=== PATIENT | female | born 1955 | race Caucasian/White ===

== ENCOUNTER → 2017-02-17 | Outpatient (CLI) | payer MEDICARE ==
--- NOTE | 2017-02-18 13:04 | MM ---
Reason for exam: screening (asymptomatic). Last mammogram was performed 3 years ago. History: Patient is postmenopausal. Took estrogen for 2 years 2 months beginning at age 42. Physical Findings: A clinical breast exam by your physician is recommended on an annual basis and results should be correlated with mammographic findings. MG 3D Screening Mammo W/Cad Bilateral CC and MLO view(s) were taken. Prior study comparison: February 13, 2014, bilateral digital screening mammo w/CAD. August 31, 2012, CAD bilateral diagnostic mammogram. The breast tissue is heterogeneously dense. This may lower the sensitivity of mammography. Finding: There is a 4 mm retroareolar mass in the slightly outer right breast, anterior depth. No suspicious calcifications. ASSESSMENT: Incomplete: need additional imaging evaluation, BI-RAD 0 RECOMMENDATION: Ultrasound of the right breast. (9-1 o'clock) [facility] will attempt to contact patient to return for ultrasound.
== END | disposition home or self-care (01) ==
LOC: RADMAMWWP 16:30
PROVIDERS: ATTEND Family Medicine
DX: Z12.31 Encounter for screening mammogram for malignant neoplasm of breast (principal); R92.2 Inconclusive mammogram
CPT/HCPCS: 77063; G0202

== ENCOUNTER → 2017-03-10 | Outpatient (CLI) | payer MEDICARE ==
--- NOTE | 2017-03-15 13:11 | MM ---
Reason for exam: additional evaluation requested from abnormal screening. Last mammogram was performed 1 month ago. History: Patient is postmenopausal. Took estrogen for 2 years 2 months beginning at age 42. Physical Findings: Nurse did not find any significant physical abnormalities on exam. MG Work Up Mamm w CAD RT LM, spot compression CC, and spot compression MLO view(s) were taken of the right breast. Prior study comparison: February 17, 2017, bilateral MG 3d screening mammo w/cad. February 13, 2014, bilateral digital screening mammo w/CAD. There is no discrete abnormality including area of concern. Precautionary 6 month follow up recommended. These results were verbally communicated with the patient and result sheet given to the patient on 03/10/17. ASSESSMENT: Probably benign, BI-RAD 3 RECOMMENDATION: Follow-up diagnostic mammogram of the right breast in 6 months.
--- NOTE | 2017-03-15 13:13 | USB ---
Reason for exam: additional evaluation requested from abnormal screening. History: Patient is postmenopausal. Took estrogen for 2 years 2 months beginning at age 42. Physical Findings: Nurse did not find any significant physical abnormalities on exam. US Breast Workup Limited RT Right breast ultrasound demonstrates no cystic or solid lesion seen. Ultrasound negative, do mammography diagnostic work up. These results were verbally communicated with the patient and result sheet given to the patient on 03/10/17. ASSESSMENT: Negative, BI-RAD 1 RECOMMENDATION: Follow-up diagnostic mammogram of the right breast.
== END | disposition home or self-care (01) ==
LOC: RADUSWWP 15:01
PROVIDERS: ATTEND Family Medicine
DX: R92.8 Other abnormal and inconclusive findings on diagnostic imaging of breast (principal)
CPT/HCPCS: 76642; G0206

== ENCOUNTER 2020-02-04 13:59 | Inpatient (IN) | payer MEDICARE ==
--- NOTE | 2020-02-04 14:31 | ED ---
General Adult HPI - General Source: patient, RN notes reviewed, old records reviewed Mode of arrival: ambulatory Limitations: no limitations <Jarrett Cam - Last Filed: 02/04/20 15:08> <Quentin Rojas - Last Filed: 02/04/20 18:44> - General Chief complaint: Shortness of Breath Stated complaint: VITALIY Time Seen by Provider: 02/04/20 14:10 - History of Present Illness Initial comments: This is a 64-year-old female presents emergency Department with a past med after a couple days of that she had diarrhea for 3 days and then after that she started feeling short of breath. Patient states the shortness of breath persists. Patient states she believes she had a low-grade fever but didn't take her temperature. Patient states her upper back started hurting at about a 4 but doesn't hurt this time. Patient denies any pain she denies headache she denies numbness weakness. Patient denies abdominal pain patient was chest pain. Patient denies any swelling to legs or calf tenderness. Patient states she is mildly short of breath at this time. (Jarrett Cam) - Related Data Home Medications Medication Instructions Recorded Confirmed Levothyroxine Sodium [Synthroid] 125 mcg PO DAILY 09/20/16 09/20/16 Simvastatin [Zocor] 20 mg PO HS 09/20/16 09/20/16 oxyCODONE-APAP 10-325MG [Percocet 1 tab PO Q6HR PRN 09/20/16 09/20/16 10-325 mg] Previous Rx's Medication Instructions Recorded Docusate [Colace] 100 mg PO DAILY cap 09/22/16 Melatonin 10 mg PO HS tablet 09/22/16 QUEtiapine FUMARATE [Seroquel] 50 mg PO AC-SUPPER #30 tablet 09/22/16 Sertraline [Zoloft] 100 mg PO DAILY #30 tab 09/22/16 Thiamine [Vitamin B-1] 100 mg PO BID@1200,1700 tab 09/22/16 Allergies Allergy/AdvReac Type Severity Reaction Status Date / Time No Known Allergies Allergy Verified 02/04/20 14:11 Review of Systems ROS Other: All systems not noted in ROS Statement are negative. <Jarrett Cam - Last Filed: 02/04/20 15:08> ROS Other: All systems not noted in ROS Statement are negative. <Quentin Rojas - Last Filed: 02/04/20 18:44> ROS Statement: Those systems with pertinent positive or pertinent negative responses have been documented in the HPI. Past Medical History Past Medical History: Hyperlipidemia, Thyroid Disorder Additional Past Medical History / Comment(s): hip pain History of Any Multi-Drug Resistant Organisms: MRSA Date of last positivie culture/infection: 2013 MDRO Source:: forehead Past Surgical History: Joint Replacement, Orthopedic Surgery Past Psychological History: No Psychological Hx Reported Smoking Status: Current every day smoker Past Alcohol Use History: Occasional Past Drug Use History: None Reported <Jarrett Cam - Last Filed: 02/04/20 15:08> General Exam Limitations: no limitations <Jarrett Cam - Last Filed: 02/04/20 15:08> - General Exam Comments Initial Comments: GENERAL: Patient is well-developed and well-nourished. Patient is nontoxic and well- hydrated and is in mild distress. Patient is actually 100% on room air at this time ENT: Neck is soft and supple. No significant lymphadenopathy is noted. Oropharynx is clear. Moist mucous membranes. Neck has full range of motion without eliciting any pain. EYES: The sclera were anicteric and conjunctiva were pink and moist. Extraocular movements were intact and pupils were equal round and reactive to light. Eyelids were unremarkable. PULMONARY: Unlabored respirations. Good breath sounds bilaterally. No audible rales rhonchi or wheezing was noted. CARDIOVASCULAR: There is a regular rate and rhythm without any murmurs gallops or rubs. ABDOMEN: Soft and nontender with normal bowel sounds. SKIN: Skin is clear with no lesions or rashes and otherwise unremarkable. NEUROLOGIC: Patient is alert and oriented x3. Cranial nerves II through XII are grossly intact. Motor and sensory are also intact. Normal speech, volume and content. Symmetrical smile. MUSCULOSKELETAL: Normal extremities with adequate strength and full range of motion. LYMPHATICS: No significant lymphadenopathy is noted PSYCHIATRIC: Normal psychiatric evaluation. (Jarrett Cam) Course <Quentin Rojas - Last Filed: 02/04/20 18:44> Vital Signs 02/04/20 02/04/20 02/04/20 14:11 15:30 16:30 Temperature 99.1 F Pulse Rate 90 92 92 Respiratory 18 18 18 Rate Blood Pressure 113/71 125/92 125/83 O2 Sat by Pulse 100 99 99 Oximetry 02/04/20 18:24 Temperature Pulse Rate 89 Respiratory 18 Rate Blood Pressure 125/87 O2 Sat by Pulse 99 Oximetry - Reevaluation(s) Reevaluation #1: 02/04/20 18:39 Patient was endorsed me by Dr. Cam pending evaluation lab work that show evidence of a hemoglobin 8.7 and did perform a rectal examine the patient with a female staff member present black colored heme positive stool. Did discuss case with the patient as well as with Dr. Vitale. Patient will be admitted for serial H&H as well as GI consultation. 02/04/20 18:41 Patient did state that she had been eating beets but a few hours after eating and last time she had red blood colored material in the toilet bowl from a bowel movement. (Quentin Rojas) Medical Decision Making - Lab Data Result diagrams: 02/04/20 14:10 02/04/20 14:10 <Jarrett Cam - Last Filed: 02/04/20 15:08> - Lab Data Result diagrams: 02/04/20 14:10 02/04/20 14:10 <Quentin Rojas - Last Filed: 02/04/20 18:44> - Medical Decision Making EKG shows normal sinus rhythm at 91 bpm MO interval 118 QRS is 82 QT interval 364 QTC is 447. Patient's EKG shows no ST segment elevation or depression. Dr. Rojas be taking over the care of this patient at 3 PM (Jarrett Cam) - Lab Data Lab Results 02/04/20 02/04/20 02/04/20 Range/Units 14:10 14:10 14:10 WBC 5.4 (3.8-10.6) k/uL RBC 2.68 L (3.80-5.40) m/uL Hgb 8.7 L (11.4-16.0) gm/dL Hct 26.0 L (34.0-46.0) % MCV 97.2 (80.0-100.0) fL MCH 32.6 (25.0-35.0) pg MCHC 33.5 (31.0-37.0) g/dL RDW 14.2 (11.5-15.5) % Plt Count 208 (150-450) k/uL Neutrophils % 67 % Lymphocytes % 22 % Monocytes % 6 % Eosinophils % 1 % Basophils % 0 % Neutrophils # 3.6 (1.3-7.7) k/uL Lymphocytes # 1.2 (1.0-4.8) k/uL Monocytes # 0.3 (0-1.0) k/uL Eosinophils # 0.1 (0-0.7) k/uL Basophils # 0.0 (0-0.2) k/uL PT 9.8 (9.0-12.0) sec INR 0.9 (<1.2) APTT 18.2 L (22.0-30.0) sec D-Dimer 0.54 (<0.60) mg/L FEU Sodium 137 (137-145) mmol/L Potassium 4.4 (3.5-5.1) mmol/L Chloride 106 (98-107) mmol/L Carbon Dioxide 21 L (22-30) mmol/L Anion Gap 10 mmol/L BUN 39 H (7-17) mg/dL Creatinine 1.27 H (0.52-1.04) mg/dL Est GFR (CKD-EPI)AfAm 52 (>60 ml/min/1.73 sqM) Est GFR (CKD-EPI)NonAf 45 (>60 ml/min/1.73 sqM) Glucose 110 H (74-99) mg/dL Plasma Lactic Acid [place] (0.7-2.0) mmol/L Calcium 9.9 (8.4-10.2) mg/dL Magnesium 1.6 (1.6-2.3) mg/dL Total Bilirubin 0.4 (0.2-1.3) mg/dL AST 30 (14-36) U/L ALT 18 (4-34) U/L Alkaline Phosphatase 49 (38-126) U/L Lactate Dehydrogenase 328 (313-618) U/L C-Reactive Protein <5.0 (<10.0) mg/L Total Protein 7.1 (6.3-8.2) g/dL Albumin 4.2 (3.5-5.0) g/dL Stool Occult Blood (Negative) Coronavirus (PCR) (Not Detectd) Influenza Type A RNA (Not Detectd) Influenza Type B (PCR) (Not Detectd) 02/04/20 02/04/20 02/04/20 Range/Units 14:10 14:35 17:55 WBC (3.8-10.6) k/uL RBC (3.80-5.40) m/uL Hgb (11.4-16.0) gm/dL Hct (34.0-46.0) % MCV (80.0-100.0) fL MCH (25.0-35.0) pg MCHC (31.0-37.0) g/dL RDW (11.5-15.5) % Plt Count (150-450) k/uL Neutrophils % % Lymphocytes % % Monocytes % % Eosinophils % % Basophils % % Neutrophils # (1.3-7.7) k/uL Lymphocytes # (1.0-4.8) k/uL Monocytes # (0-1.0) k/uL Eosinophils # (0-0.7) k/uL Basophils # (0-0.2) k/uL PT (9.0-12.0) sec INR (<1.2) APTT (22.0-30.0) sec D-Dimer (<0.60) mg/L FEU Sodium (137-145) mmol/L Potassium (3.5-5.1) mmol/L Chloride (98-107) mmol/L Carbon Dioxide (22-30) mmol/L Anion Gap mmol/L BUN (7-17) mg/dL Creatinine (0.52-1.04) mg/dL Est GFR (CKD-EPI)AfAm (>60 ml/min/1.73 sqM) Est GFR (CKD-EPI)NonAf (>60 ml/min/1.73 sqM) Glucose (74-99) mg/dL Plasma Lactic Acid [place] 1.2 (0.7-2.0) mmol/L Calcium (8.4-10.2) mg/dL Magnesium (1.6-2.3) mg/dL Total Bilirubin (0.2-1.3) mg/dL AST (14-36) U/L ALT (4-34) U/L Alkaline Phosphatase (38-126) U/L Lactate Dehydrogenase (313-618) U/L C-Reactive Protein (<10.0) mg/L Total Protein (6.3-8.2) g/dL Albumin (3.5-5.0) g/dL Stool Occult Blood Positive H (Negative) Coronavirus (PCR) Not Detected (Not Detectd) Influenza Type A RNA Not Detected (Not Detectd) Influenza Type B (PCR) Not Detected (Not Detectd) Disposition <Jarrett Cam - Last Filed: 02/04/20 15:08> <Quentin Rojas - Last Filed: 02/04/20 18:44> Clinical Impression: GI bleed, Anemia Disposition: ADMITTED IP TO THIS HOSP Condition: Fair Referrals: Brooke Head MD [Primary Care Provider] - 1-2 days
[2020-02-04 14:38] LABS: Basophils % (A) 0 %; Eosinophils # (A) 0.1 k/uL (0-0.7); Eosinophils % (A) 1 %; HGB 8.7 gm/dL (11.4-16.0); Lymphocytes # (A) 1.2 k/uL (1.0-4.8); Lymphocytes % (A) 22 %; MCH 32.6 pg (25.0-35.0); MCHC 33.5 g/dL (31.0-37.0); MCV 97.2 fL (80.0-100.0); Mean Platelet Volume 8.6; Monocytes # (A) 0.3 k/uL (0-1.0); Monocytes % (A) 6 %; Neutrophils # (A) 3.6 k/uL (1.3-7.7); Neutrophils % (A) 67 %; Platelet Count 208 k/uL (150-450); RBC 2.68 m/uL (3.80-5.40); RDW 14.2 % (11.5-15.5); WBC 5.4 k/uL (3.8-10.6)
[2020-02-04 14:49] LABS: ALT 18 U/L (4-34); AST 30 U/L (14-36); African American GFR (CKD) 52 (>60 ml/min/1.73 sqM); Albumin 4.2 g/dL (3.5-5.0); Alkaline Phosphatase 49 U/L (38-126); Anion Gap 10 mmol/L; Blood Urea Nitrogen 39 mg/dL (7-17); C Reactive Protein <5.0 mg/L (<10.0); Calcium 9.9 mg/dL (8.4-10.2); Carbon Dioxide 21 mmol/L (22-30); Chloride 106 mmol/L (98-107); Glucose 110 mg/dL (74-99); LDH 328 U/L (313-618); Magnesium 1.6 mg/dL (1.6-2.3); Non-African American GFR(CKD) 45 (>60 ml/min/1.73 sqM); Potassium 4.4 mmol/L (3.5-5.1); Sodium 137 mmol/L (137-145); Total Bilirubin 0.4 mg/dL (0.2-1.3); Total Protein 7.1 g/dL (6.3-8.2)
[2020-02-04 15:04] LABS: D-Dimer 0.54 mg/L FEU (<0.60); INR 0.9 (<1.2); Prothrombin Time 9.8 sec (9.0-12.0)
[2020-02-04 15:09] LABS: Partial Thromboplastin Time 18.2 sec (22.0-30.0)
--- NOTE | 2020-02-04 15:16 | XR ---
EXAMINATION TYPE: XR chest 1V portable DATE OF EXAM: 02/04/2020 COMPARISON: None INDICATION: Suspected Covid 19 pneumonia TECHNIQUE: Single frontal view of the chest is obtained. FINDINGS: The heart size is normal. The pulmonary vasculature is normal. The lungs are clear. No focal consolidations or peripheral infiltrates are evident. IMPRESSION: 1. No acute pulmonary process.
[2020-02-04 16:11] LABS: SARS-CoV-2 RNA Rapid Abbott Not Detected (Not Detectd)
[2020-02-04] MEDS ORDERED: NALOXONE 0.4 MG/ML 1 ML VIAL IV PRN (18:44)
[2020-02-04] MEDS: oxyCODONE-APAP 10-325MG 1 EACH TAB PO PRN (19:02)
[2020-02-04] MEDS: MELATONIN 5 MG TABLET PO SCH (20:53)
[2020-02-04] MEDS: PANTOPRAZOLE 40 MG/10 ML VIAL IV SCH (20:53)
[2020-02-04 20:54] LABS: Basophils % (A) 0 %; Eosinophils # (A) 0.2 k/uL (0-0.7); Eosinophils % (A) 3 %; HCT 25.9 % (34.0-46.0); HGB 8.4 gm/dL (11.4-16.0); Lymphocytes # (A) 1.5 k/uL (1.0-4.8); Lymphocytes % (A) 22 %; MCH 31.6 pg (25.0-35.0); MCHC 32.3 g/dL (31.0-37.0); MCV 97.7 fL (80.0-100.0); Mean Platelet Volume 9.7; Monocytes # (A) 0.4 k/uL (0-1.0); Monocytes % (A) 6 %; Neutrophils # (A) 4.4 k/uL (1.3-7.7); Neutrophils % (A) 68 %; Platelet Count 196 k/uL (150-450); RBC 2.65 m/uL (3.80-5.40); RDW 14.3 % (11.5-15.5); WBC 6.5 k/uL (3.8-10.6)
[2020-02-04] MEDS ORDERED: ATORVASTATIN 10 MG TAB PO SCH (21:00)
[2020-02-04] MEDS ORDERED: FLUTICASONE 50MCG/SPRAY NASAL 16GM EA NOSTRIL PRN (22:08)
[2020-02-04] MEDS ORDERED: ALBUTEROL NEBULIZED 2.5 MG/3 ML INHALATION PRN (22:08)
--- NOTE | 2020-02-04 22:32 | P.HPIM ---
History of Present Illness H&P Date: 02/04/20 Chief Complaint: 1 acute gastrointestinal bleed, acute blood loss anemia, severe dyspnea and 64-year-old female one of Dr. Head's patient with past medical history of hypothyroidism, hyperlipidemia, chronic neuropathy and chronic depression who is also known to have history of chronic pain syndrome who developed to have significant dyspnea and shortness of breath for the last 3 days become much worse lately ended up coming to demurs department at [facility] where was seen and evaluated she believe she had low-grade temperature and was concern about COVID 19 infection has been having worsening pain and body ache all over body as well she denies any abdominal pain or chest pain she denies any cough but significant shortness of breath with minimum exertion. Her lab testing showed negative influenza and coronavirus as well surprisingly her hemoglobin significantly down compared to her baseline almost about 40 g with significantly elevated BUN/creatinine Hemoccult was positive and when stressed out patient ended up complaining of mild mid abdominal discomfort with no clear bright red blood per rectum but? Of tarry stool. Patient was started on pantoprazole IV with type and cross 2 units of RBC with no transfusion at this point watch hemoglobin every 6 hours and consult gastroenterology patient most likely will need to go for at least an EGD and possible colonoscopy. Review of Systems CONSTITUTIONAL: Well-developed no acute respiratory distress. EYES: No icterus sclerae, no conjunctivitis. EARS, NOSE, MOUTH, THROAT, and FACE: No sore throat, lymphadenopathy, carotid bruits or deformity. RESPIRATORY: Mild shortness of breath and cough. CARDIOVASCULAR: Positive PND orthopnea palpitation. GASTROINTESTINAL: Possible mild abdominal discomfort with nausea no vomiting? Tarry stool. GENITOURINARY: Negative for Hematuria or UTI, no kidney stones. INTEGUMENT/BREAST: Negative for any muscular injury with mild osteoarthritis.. HEMATOLOGIC/LYMPHATIC: Negative for bleed or purpura. MUSCULOSKELTAL: Generalized arthralgia and myalgia. NEURLOGICAL: No LOC, Sz or syncope, blurred vision dizziness or abnormality.. BEHAVIORAL/PSYCH: Negative. ENDOCRINE: Negative. Past Medical History Past Medical History: Hyperlipidemia, Thyroid Disorder Additional Past Medical History / Comment(s): hip pain History of Any Multi-Drug Resistant Organisms: MRSA Date of last positivie culture/infection: 2013 MDRO Source:: forehead Past Surgical History: Joint Replacement, Orthopedic Surgery Past Anesthesia/Blood Transfusion Reactions: No Reported Reaction Past Psychological History: No Psychological Hx Reported Smoking Status: Former smoker Past Alcohol Use History: Occasional Past Drug Use History: None Reported - Past Family History Mother Family Medical History: No Reported History Father Family Medical History: No Reported History Medications and Allergies Home Medications Medication Instructions Recorded Confirmed Type oxyCODONE-APAP 10-325MG [Percocet 1 tab PO TID PRN 09/20/16 02/04/20 History 10-325 mg] Melatonin 10 mg PO HS tablet 09/22/16 02/04/20 Rx Albuterol Sulfate [Proair Hfa] 2 puff INHALATION RT-Q6H PRN 02/04/20 02/04/20 History Budesonide/Formoterol Fumarate 2 puff INHALATION RT-BID 02/04/20 02/04/20 History [Symbicort 160-4.5 Mcg Inhaler] DULoxetine HCL [Cymbalta] 60 mg PO BID 02/04/20 02/04/20 History Fluticasone Nasal [place] [Flonase 2 spr EA NOSTRIL BID PRN 02/04/20 02/04/20 History Nasal [place]] Gabapentin [Neurontin] 300 mg PO TID 02/04/20 02/04/20 History Levothyroxine Sodium 150 mcg PO DAILY 02/04/20 02/04/20 History Loratadine [Claritin] 10 mg PO HS 02/04/20 02/04/20 History Losartan Potassium [Cozaar] 25 mg PO DAILY 02/04/20 02/04/20 History Methylphenidate HCl [Ritalin] 10 mg PO BID 02/04/20 02/04/20 History QUEtiapine [SEROquel] 100 mg PO DAILY 02/04/20 02/04/20 History Risedronate Sodium [Risedronate 35 mg PO DEVRIES 02/04/20 02/04/[address]] Simvastatin [Zocor] 40 mg PO HS 02/04/20 02/04/20 History buPROPion HCL [Wellbutrin SR] 100 mg PO BID 02/04/20 02/04/20 History Allergies Allergy/AdvReac Type Severity Reaction Status Date / Time No Known Allergies Allergy Verified 02/04/20 19:25 Physical Exam Vitals: Vital Signs Temp Pulse Resp BP Pulse Ox 02/04/20 19:15 98 18 115/80 99 02/04/20 18:24 89 18 125/87 99 02/04/20 16:30 92 18 125/83 99 02/04/20 15:30 92 18 125/92 99 02/04/20 14:11 99.1 F 90 18 113/71 100 Intake and Output 02/04/20 02/04/20 02/04/20 06:59 14:59 22:59 Other: Weight 58.967 kg 58.967 kg General Appearance: Alert, cooperative, no distress, appears stated age. Neck HEENT: Supple, no lymphadenopathy, no thyroid enlargement, no carotid bruits. Lungs: Decreased breath some bilaterally with fine rhonchi positive mild expressive 2 wheezes. Chest Wall: Decrease expansion with deep inspiration no tenderness and no deformity was found on exam, no costochondral pain or discomfort. Heart: Regular rate and rhythm, S1, S2 normal, no murmur, rub or gallop. Back: Symmetric, no curvature, ROM normal, no CVA tenderness. Abdomen: Soft positive bowel sounds slight discomfort in the midepigastric area and left lower quadrant and no rebound or rigidity. Extremities: Extremities normal, atraumatic, no cyanosis or edema. Pulses: 2+ and symmetric. Skin: Skin color, texture, tugor normal, no rashes or lesions. Neurologic: Alert oriented x3 cranial nerves II through XII intact, no motor de ficit, no abnormal balance or gait. Results CBC & Chem 7: 02/04/20 20:29 02/04/20 14:10 Labs: Abnormal Lab Results - Last 24 Hours (Table) 02/04/20 02/04/20 02/04/20 Range/Units 14:10 14:10 14:10 RBC 2.68 L (3.80-5.40) m/uL Hgb 8.7 L (11.4-16.0) gm/dL Hct 26.0 L (34.0-46.0) % APTT 18.2 L (22.0-30.0) sec Carbon Dioxide 21 L (22-30) mmol/L BUN 39 H (7-17) mg/dL Creatinine 1.27 H (0.52-1.04) mg/dL Glucose 110 H (74-99) mg/dL Stool Occult Blood (Negative) Crossmatch 02/04/20 02/04/20 02/04/20 Range/Units 17:55 19:05 20:29 RBC 2.65 L (3.80-5.40) m/uL Hgb 8.4 L (11.4-16.0) gm/dL Hct 25.9 L (34.0-46.0) % APTT (22.0-30.0) sec Carbon Dioxide (22-30) mmol/L BUN (7-17) mg/dL Creatinine (0.52-1.04) mg/dL Glucose (74-99) mg/dL Stool Occult Blood Positive H (Negative) Crossmatch See Detail Thrombosis Risk Factor Assmnt - DVT/VTE Prophylaxis DVT/VTE Prophylaxis: Mechanical Prophylaxis ordered - Choose All That Apply Any of the Below Risk Factors Present?: No Other Risk Factors: Yes Each Risk Factor Represents 2 Points: Age 61-74 years Thrombosis Risk Factor Assessment Total Risk Factor Score: 2 Thrombosis Risk Factor Assessment Level: Low Risk Assessment and Plan Assessment: 1 acute blood loss anemia: With significant drop in hemoglobin almost 3 g continue fluid resuscitation and if needed blood transfusion be done if hemoglobin is below 7. 2 acute gastrointestinal bleed: With positive Hemoccult and significant drop in hemoglobin and mildly elevated BNP creatinine ratio, patient will continue fluid resuscitation repeat CBC every 8 hours we'll consult gastroenterology keep patient nothing by mouth for possible EGD and colonoscopy 3 acute kidney injury most likely from acute tubular necrosis with significant elevation and BUN to creatinine ratio at this point hydrate patient and watch the blood pressure and repeat BUN/creatinine continue to watch her urine output as well. 4 COPD: Patient has been on albuterol and budesonide continue both medication. 5 hypothyroidism: Continue patient on levothyroxine 125 g daily. 6 chronic depression: Has been on Wellbutrin SR 100 mg twice a day, duloxetine 60 mg twice a day, Seroquel 50 mg before meals supper time and 100 mg in the morning. On Zoloft 100 mg a day as well. 7 hypertension: Remain on losartan 25 mg a day. 8 chronic neuropathy: Has been on gabapentin 300 mg 3 times a day. 9 chronic pain syndrome: Remain on oxycodone 10 mg every 6 hours as needed combined with gabapentin. 10 DVT prophylaxis: Patient will have knee-high JUNIE hose. 11 GI prophylaxis: Remain on pantoprazole. CODE STATUS: Full code. Admit patient to inpatient status for more than 2 nights.
[2020-02-04] MEDS: SODIUM CHLORIDE 0.9% 1,000 ML IV SCH (23:43)
[2020-02-05] MEDS: oxyCODONE-APAP 10-325MG 1 EACH TAB PO PRN ×3 (00:57→11:33)
[2020-02-05 02:24] LABS: Basophils % (A) 0 %; Eosinophils # (A) 0.2 k/uL (0-0.7); Eosinophils % (A) 3 %; HCT 23.7 % (34.0-46.0); HGB 7.8 gm/dL (11.4-16.0); Lymphocytes # (A) 1.8 k/uL (1.0-4.8); Lymphocytes % (A) 31 %; MCH 32.4 pg (25.0-35.0); MCHC 32.9 g/dL (31.0-37.0); MCV 98.5 fL (80.0-100.0); Mean Platelet Volume 9.1; Monocytes # (A) 0.4 k/uL (0-1.0); Monocytes % (A) 8 %; Neutrophils # (A) 3.2 k/uL (1.3-7.7); Neutrophils % (A) 55 %; Platelet Count 179 k/uL (150-450); RDW 14.4 % (11.5-15.5); WBC 5.7 k/uL (3.8-10.6)
[2020-02-05 05:52] LABS: Ferritin 39.5 ng/mL (10.0-291.0)
[2020-02-05] MEDS: SODIUM CHLORIDE 0.9% 1,000 ML IV SCH ×3 (05:53→19:48)
[2020-02-05] MEDS: LEVOTHYROXINE 50 MCG TAB PO SCH (06:09)
[2020-02-05] MEDS ORDERED: LEVOTHYROXINE 125 MCG TAB PO SCH (06:30)
[2020-02-05] MEDS: ALBUTEROL HFA INHALER INHALATION PRN ×3 (08:25→19:20)
[2020-02-05] MEDS: SYMBICORT 160-4.5 MCG INHALER INHALATION SCH ×2 (08:26→19:20)
[2020-02-05] MEDS ORDERED: SERTRALINE 100 MG TAB PO SCH (09:00)
[2020-02-05] MEDS: buPROPion SR 100 MG TABLET.ER PO SCH ×2 (09:01→21:39)
[2020-02-05] MEDS: LOSARTAN 25 MG TAB PO SCH (09:02)
[2020-02-05] MEDS: METHYLPHENIDATE HCL 10 MG TAB PO SCH ×2 (09:02→21:38)
[2020-02-05] MEDS: GABAPENTIN 300 MG CAP PO SCH ×3 (09:02→21:38)
[2020-02-05] MEDS: QUEtiapine 100 MG TAB PO SCH (09:03)
[2020-02-05] MEDS: PANTOPRAZOLE 40 MG/10 ML VIAL IV SCH ×2 (09:03→21:39)
[2020-02-05 09:05] LABS: Basophils % (A) 0 %; Eosinophils # (A) 0.2 k/uL (0-0.7); Eosinophils % (A) 3 %; HCT 29.3 % (34.0-46.0); Lymphocytes # (A) 1.9 k/uL (1.0-4.8); Lymphocytes % (A) 32 %; MCH 31.3 pg (25.0-35.0); MCV 97.8 fL (80.0-100.0); Mean Platelet Volume 9.1; Monocytes # (A) 0.4 k/uL (0-1.0); Monocytes % (A) 8 %; Neutrophils # (A) 3.2 k/uL (1.3-7.7); Neutrophils % (A) 56 %; Platelet Count 202 k/uL (150-450); WBC 5.8 k/uL (3.8-10.6)
[2020-02-05 09:06] LABS: HGB 9.4 gm/dL (11.4-16.0)
[2020-02-05] MEDS: DULoxetine HCL 60 MG CAPSULE.DR PO SCH ×2 (09:13→21:39)
[2020-02-05] MEDS: THIAMINE 100 MG TAB PO SCH ×2 (11:33→16:33)
--- NOTE | 2020-02-05 13:33 | P.PN ---
Subjective Progress Note Date: 02/05/20 64-year-old female one of Dr. Head's patient with past medical history of hypothyroidism, hyperlipidemia, chronic neuropathy and chronic depression who is also known to have history of chronic pain syndrome who developed to have significant dyspnea and shortness of breath for the last 3 days become much worse lately ended up coming to demurs department at [facility] where was seen and evaluated she believe she had low-grade temperature and was concern about COVID 19 infection has been having worsening pain and body ache all over body as well she denies any abdominal pain or chest pain she denies any cough but significant shortness of breath with minimum exertion. Her lab testing showed negative influenza and coronavirus as well surprisingly her hemoglobin significantly down compared to her baseline almost about 40 g with significantly elevated BUN/creatinine Hemoccult was positive and when stressed out patient ended up complaining of mild mid abdominal discomfort with no clear bright red blood per rectum but? Of tarry stool. Patient was started on pantoprazole IV with type and cross 2 units of RBC with no transfusion at this point watch hemoglobin every 6 hours and consult gastroenterology patient most likely will need to go for at least an EGD and possible colonoscopy. 02/04: Hemoglobin this morning was 7.8 and patient was transfused 1 unit of packed RBCs with a repeat hemoglobin of 9.4. Patient gives history that she has had a colonoscopy near [address] Knox at [facility]. She has never had an EGD. She has not had a bowel movement since admission. She last saw Dr. Head 2-3 months ago but voices concerns about returning to see her and has been given the option of either following up with Dr. Cadet at the time of discharge or making arrangements to see another primary care physician. GI is on consult. Anticipate upper and lower endoscopies to be ordered. Patient is afebrile, heart rate 84, blood pressure 147/80, pulse ox 91% on room air. Objective - Vital Signs Vital signs: Vital Signs Temp 98.2 F 02/05/20 03:58 Pulse 89 02/05/20 06:48 Resp 16 02/05/20 06:48 BP 142/78 02/05/20 06:48 Pulse Ox 95 02/05/20 06:48 Intake & Output 02/04/20 02/05/20 02/05/20 18:59 06:59 18:59 Intake Total 310 Balance 310 Weight 58.967 kg 58.967 kg Intake: Blood Product 310 Rc As-1 Unit 310 [id number] Other: # Voids 1 - Exam Review of Systems CONSTITUTIONAL: Well-developed no acute respiratory distress. Denies fever, denies chills EYES: No icterus sclerae, no conjunctivitis. EARS, NOSE, MOUTH, THROAT, and FACE: No sore throat, lymphadenopathy, carotid bruits or deformity. RESPIRATORY: Mild shortness of breath and cough. CARDIOVASCULAR: Positive PND orthopnea palpitation. GASTROINTESTINAL: Possible mild abdominal discomfort with nausea no vomiting. Denies bowel movement. GENITOURINARY: Negative for Hematuria or UTI, no kidney stones. INTEGUMENT/BREAST: Negative for any muscular injury with mild osteoarthritis.. HEMATOLOGIC/LYMPHATIC: Negative for bleed or purpura. MUSCULOSKELTAL: Generalized arthralgia and myalgia. NEURLOGICAL: No LOC, Sz or syncope, blurred vision dizziness or abnormality.. BEHAVIORAL/PSYCH: Negative. ENDOCRINE: Negative. Physical examination General Appearance: Alert, cooperative, no distress, appears stated age. Neck HEENT: Supple, no lymphadenopathy, no thyroid enlargement, no carotid bruits. Lungs: Decreased breath some bilaterally with fine rhonchi positive mild expiratory 2 wheezes. Chest Wall: Decrease expansion with deep inspiration no tenderness and no deformity was found on exam, no costochondral pain. Heart: Regular rate and rhythm, S1, S2 normal, no murmur, rub or gallop. Back: Symmetric, no curvature, ROM normal, no CVA tenderness. Abdomen: Soft positive bowel sounds slight discomfort in the midepigastric area and left lower quadrant and no rebound or rigidity. Extremities: Extremities normal, atraumatic, no cyanosis or edema. Pulses: 2+ and symmetric. Skin: Skin color, texture, tugor normal, no rashes or lesions. Neurologic: Alert oriented x3 cranial nerves II through XII intact, no motor deficit, no abnormal balance or gait. - Labs CBC & Chem 7: 02/05/20 07:51 02/04/20 14:10 Labs: Abnormal Lab Results - Last 24 Hours (Table) 02/04/20 02/04/20 02/04/20 Range/Units 14:10 14:10 14:10 RBC 2.68 L (3.80-5.40) m/uL Hgb 8.7 L (11.4-16.0) gm/dL Hct 26.0 L (34.0-46.0) % APTT 18.2 L (22.0-30.0) sec Carbon Dioxide 21 L (22-30) mmol/L BUN 39 H (7-17) mg/dL Creatinine 1.27 H (0.52-1.04) mg/dL Glucose 110 H (74-99) mg/dL Stool Occult Blood (Negative) Crossmatch 02/04/20 02/04/20 02/04/20 Range/Units 17:55 19:05 20:29 RBC 2.65 L (3.80-5.40) m/uL Hgb 8.4 L (11.4-16.0) gm/dL Hct 25.9 L (34.0-46.0) % APTT (22.0-30.0) sec Carbon Dioxide (22-30) mmol/L BUN (7-17) mg/dL Creatinine (0.52-1.04) mg/dL Glucose (74-99) mg/dL Stool Occult Blood Positive H (Negative) Crossmatch See Detail 02/05/20 Range/Units 01:55 RBC 2.40 L (3.80-5.40) m/uL Hgb 7.8 L (11.4-16.0) gm/dL Hct 23.7 L (34.0-46.0) % APTT (22.0-30.0) sec Carbon Dioxide (22-30) mmol/L BUN (7-17) mg/dL Creatinine (0.52-1.04) mg/dL Glucose (74-99) mg/dL Stool Occult Blood (Negative) Crossmatch Assessment and Plan Plan: 1 acute blood loss anemia status post transfusion of 1 unit of packed RBCs. 2 acute gastrointestinal bleed with positive stool for occult blood. Consult with GI with anticipated EGD and colonoscopy. Continue Protonix 40 mg IV twice daily. 3 acute kidney injury most likely from acute tubular necrosis with significant elevation and BUN to creatinine ratio at this point hydrate patient and watch the blood pressure and repeat BUN/creatinine continue to watch her urine output as well. 4 COPD without exacerbation: Patient has been on albuterol and budesonide continue both medication. 5 hypothyroidism: Continue patient on levothyroxine 125 g daily. 6 chronic depression: Has been on Wellbutrin SR 100 mg twice a day, duloxetine 60 mg twice a day, Seroquel 50 mg before meals supper time and 100 mg in the morning. On Zoloft 100 mg a day as well. 7 hypertension: Remain on losartan 25 mg a day. 8 chronic neuropathy: Has been on gabapentin 300 mg 3 times a day. 9 chronic pain syndrome: Remain on oxycodone 10 mg every 6 hours as needed combined with gabapentin. 10 DVT prophylaxis: Patient will have knee-high JUNIE hose. 11 GI prophylaxis: Remain on pantoprazole. CODE STATUS: Full code. Discharge plan: Home in the next 24 hours Impression and plan of care have been directed as dictated by the signing physician. Amanda Carrasco nurse practitioner acting as scribe for signing physician.
[2020-02-05 16:41] LABS: Glucose,Whole Blood 112 mg/dL (75-99)
[2020-02-05] MEDS ORDERED: QUEtiapine 50 MG TAB PO SCH (17:30)
[2020-02-05] MEDS ORDERED: BISACODYL 5 MG TABLET.DR PO STA (20:19)
--- NOTE | 2020-02-05 20:32 | P.CONS ---
History of Present Illness - Reason for Consult Consult date: 02/05/20 Anemia Requesting physician: Francisco Vitale - Chief Complaint Weakness - History of Present Illness 64-year-old female with a medical history significant for hyperlipidemia, hy pothyroidism, neuropathy and depression who presented with complaints of weakness and shortness of breath. The patient reports worsening weakness and shortness of breath over the past few days prior to presentation. She presented to the hospital over concerns of possible infection with the novel coronavirus, however testing was negative. The patient was found to have a normocytic anemia on presentation with hemoglobin of 8.7 currently 9.4 status post transfusion. WBC 5.8, platelet count 202,000, total bilirubin 0.4, alkaline phosphatase 49, AST 30 and ALP 18. The patient believes her last colonoscopy was approximately 10 years ago in unremarkable and does not believe she has had an EGD in the past. She denies any history of peptic ulcer disease. She does report ibuprofen use intermittently. She denies any change in bowel habits but may have seen some dark stool as well as red stool after drinking juice. She also had 3-4 days of diarrhea which is currently resolved and describes some abdominal pain above the belly button which is also already improved. Currently tolerating her diet. Review of Systems REVIEW OF SYSTEMS: CONSTITUTIONAL: Reports fatigue, also had some fevers and chills when the symptoms initially started a few days ago which resolved. CARDIOVASCULAR: Denies any chest pain, palpitations high or low blood pressures RESPIRATORY: Denies any shortness of breath, hemoptysis or cough. GENITOURINARY: No dysuria or hematuria. MUSCULOSKELETAL: No weakness reported. SKIN: Denies any new rashes or lesions, jaundice or pallor. PSYCHIATRIC: The patient does have a history of major depression. NEUROLOGY: Denies headache, denies any new focal deficits. EARS/NOSE/THROAT: No recent hearing change, congestion, nasal discharge or sore throat. EYES: No pain in eyes, discharge or change in vision. GASTROINTESTINAL: As per HPI. Past Medical History Past Medical History: Hyperlipidemia, Thyroid Disorder Additional Past Medical History / Comment(s): hip pain History of Any Multi-Drug Resistant Organisms: MRSA Year Discovered:: 2013 MDRO Source:: forehead Past Surgical History: Joint Replacement, Orthopedic Surgery Past Anesthesia/Blood Transfusion Reactions: No Reported Reaction Past Psychological History: No Psychological Hx Reported Smoking Status: Former smoker Past Alcohol Use History: Occasional Past Drug Use History: None Reported - Past Family History Mother Family Medical History: No Reported History Father Family Medical History: No Reported History Medications and Allergies Home Medications Medication Instructions Recorded Confirmed Type oxyCODONE-APAP 10-325MG [Percocet 1 tab PO TID PRN 09/20/16 02/04/20 History 10-325 mg] Melatonin 10 mg PO HS tablet 09/22/16 02/04/20 Rx Albuterol Sulfate [Proair Hfa] 2 puff INHALATION RT-Q6H PRN 02/04/20 02/04/20 History Budesonide/Formoterol Fumarate 2 puff INHALATION RT-BID 02/04/20 02/04/20 History [Symbicort 160-4.5 Mcg Inhaler] DULoxetine HCL [Cymbalta] 60 mg PO BID 02/04/20 02/04/20 History Fluticasone Nasal Loving [Flonase 2 spr EA NOSTRIL BID PRN 02/04/20 02/04/20 History Nasal Loving] Gabapentin [Neurontin] 300 mg PO TID 02/04/20 02/04/20 History Levothyroxine Sodium 150 mcg PO DAILY 02/04/20 02/04/20 History Loratadine [Claritin] 10 mg PO HS 02/04/20 02/04/20 History Losartan Potassium [Cozaar] 25 mg PO DAILY 02/04/20 02/04/20 History Methylphenidate HCl [Ritalin] 10 mg PO BID 02/04/20 02/04/20 History QUEtiapine [SEROquel] 100 mg PO DAILY 02/04/20 02/04/20 History Risedronate Sodium [Risedronate 35 mg PO DEVRIES 02/04/20 02/04/[address]] Simvastatin [Zocor] 40 mg PO HS 02/04/20 02/04/20 History buPROPion HCL [Wellbutrin SR] 100 mg PO BID 02/04/20 02/04/20 History Allergies Allergy/AdvReac Type Severity Reaction Status Date / Time No Known Allergies Allergy Verified 02/04/20 19:25 Physical Exam Vitals: Vital Signs Temp Pulse Pulse Resp BP BP Pulse Ox 02/05/20 08:45 18 02/05/20 07:00 98.4 F 84 18 147/80 91 L 02/05/20 06:48 89 16 142/78 95 02/05/20 06:08 75 16 137/90 100 02/05/20 04:38 80 16 133/85 100 02/05/20 04:06 80 16 127/77 96 02/05/20 03:58 98.2 F 84 16 134/82 98 02/05/20 03:33 97.7 F 77 147/78 92 L 02/05/20 02:33 98.5 F 84 18 108/60 97 02/04/20 19:15 98 18 115/80 99 02/04/20 18:24 89 18 125/87 99 02/04/20 16:30 92 18 125/83 99 02/04/20 15:30 92 18 125/92 99 02/04/20 14:11 99.1 F 90 18 113/71 100 Intake and Output 02/04/20 02/05/20 02/05/20 22:59 06:59 14:59 Intake Total 310 Balance 310 Intake: Blood Product 310 Rc As-1 Unit 310 [id number] Other: Voiding Method Toilet # Voids 1 Weight 58.967 kg On physical examination, patient appears comfortable in no apparent distress. HEAD: Normocephalic, atraumatic. EYES: No scleral icterus. No conjunctival injection. MOUTH: No lesions, tongue midline. NECK: Trachea midline, no gross abnormalities. CHEST: Clear to auscultation with no wheezing or rhonchi appreciated. HEART: Regular rate and rhythm. ABDOMEN: Soft, nontender to palpation. Bowel sounds are positive. No organomegaly. No guarding or rigidity. EXTREMITIES: No pedal edema. SKIN: No rashes, no jaundice. NEUROLOGIC: Alert and oriented x3. No focal deficits. Results CBC & Chem 7: 02/05/20 07:51 02/04/20 14:10 Labs: Abnormal Lab Results - Last 24 Hours (Table) 02/04/20 02/04/20 02/04/20 Range/Units 14:10 14:10 14:10 RBC 2.68 L (3.80-5.40) m/uL Hgb 8.7 L (11.4-16.0) gm/dL Hct 26.0 L (34.0-46.0) % APTT 18.2 L (22.0-30.0) sec Carbon Dioxide 21 L (22-30) mmol/L BUN 39 H (7-17) mg/dL Creatinine 1.27 H (0.52-1.04) mg/dL Glucose 110 H (74-99) mg/dL Stool Occult Blood (Negative) Crossmatch 02/04/20 02/04/20 02/04/20 Range/Units 17:55 19:05 20:29 RBC 2.65 L (3.80-5.40) m/uL Hgb 8.4 L (11.4-16.0) gm/dL Hct 25.9 L (34.0-46.0) % APTT (22.0-30.0) sec Carbon Dioxide (22-30) mmol/L BUN (7-17) mg/dL Creatinine (0.52-1.04) mg/dL Glucose (74-99) mg/dL Stool Occult Blood Positive H (Negative) Crossmatch See Detail 02/05/20 02/05/20 Range/Units 01:55 07:51 RBC 2.40 L 3.00 L (3.80-5.40) m/uL Hgb 7.8 L 9.4 L D (11.4-16.0) gm/dL Hct 23.7 L 29.3 L (34.0-46.0) % APTT (22.0-30.0) sec Carbon Dioxide (22-30) mmol/L BUN (7-17) mg/dL Creatinine (0.52-1.04) mg/dL Glucose (74-99) mg/dL Stool Occult Blood (Negative) Crossmatch Chest x-ray: report reviewed (No acute pulmonary process on chest x-ray) Assessment and Plan (1) Normocytic normochromic anemia Narrative/Plan: 64-year-old female with multiple medical comorbidities who presented to the hospital due to weakness and a constellation of other symptoms. She had reported diarrhea which improved as well as some abdominal pain which is also resolved. Reports some red bowel movements after drinking beat juice as well as possible dark bowel movements. No further bowel movements today. Hemoglobin was found to be depressed at 8.7 on presentation with normocytic indices. No gross bleeding reported. Remote history of colonoscopy which she believes was normal proximally 10 years ago and denies any history of EGD. She does use NSAIDs at home with ibuprofen for pain. Unclear etiology of anemia, may be secondary to chronic disease, cannot exclude a component of GI bleed given use of NSAIDs, or other etiology. Current Visit: Yes Status: Acute Code(s): D64.9 - ANEMIA, UNSPECIFIED SNOMED Code(s): 54890655 (2) Stool guaiac positive Current Visit: Yes Status: Acute Code(s): R19.5 - OTHER FECAL ABNORMALITIES SNOMED Code(s): 74802913 Plan: Supportive care Okay for diet, patient will need to be put on a clear liquid diet tomorrow Plan for EGD and colonoscopy for evaluation of anemia on 02/07/2020 Labs for further investigation of anemia ordered Avoid NSAID use Continue to monitor hemoglobin and hematocrit and transfuse as needed Further recommendations to follow Thank you for allowing us to participate in the care of the patient
[2020-02-05] MEDS: ATORVASTATIN 20 MG TAB PO SCH (21:38)
[2020-02-05] MEDS: LORATADINE 10 MG TAB PO SCH (21:39)
[2020-02-05] MEDS: MELATONIN 5 MG TABLET PO SCH (21:39)
[2020-02-06] MEDS: oxyCODONE-APAP 10-325MG 1 EACH TAB PO PRN (02:47)
[2020-02-06] MEDS: LEVOTHYROXINE 50 MCG TAB PO SCH (05:26)
[2020-02-06 07:24] LABS: HCT 25.3 % (34.0-46.0); MCH 30.9 pg (25.0-35.0); MCHC 31.6 g/dL (31.0-37.0); MCV 97.8 fL (80.0-100.0); Macrocytosis Slight; Mean Platelet Volume 9.1; Platelet Count 182 k/uL (150-450); RBC 2.59 m/uL (3.80-5.40); RDW 15.7 % (11.5-15.5); WBC 5.5 k/uL (3.8-10.6)
[2020-02-06 07:38] LABS: Calcium 8.4 mg/dL (8.4-10.2); Potassium 4.5 mmol/L (3.5-5.1)
[2020-02-06] MEDS: SYMBICORT 160-4.5 MCG INHALER INHALATION SCH ×2 (08:01→19:50)
[2020-02-06] MEDS: ALBUTEROL HFA INHALER INHALATION PRN ×3 (08:01→19:50)
[2020-02-06] MEDS: buPROPion SR 100 MG TABLET.ER PO SCH (08:29)
[2020-02-06] MEDS: GABAPENTIN 300 MG CAP PO SCH (08:29)
[2020-02-06] MEDS: PANTOPRAZOLE 40 MG/10 ML VIAL IV SCH ×2 (08:29→21:54)
[2020-02-06] MEDS: DULoxetine HCL 60 MG CAPSULE.DR PO SCH (08:29)
[2020-02-06] MEDS: METHYLPHENIDATE HCL 10 MG TAB PO SCH ×2 (08:29→21:54)
[2020-02-06] MEDS: QUEtiapine 100 MG TAB PO SCH (08:30)
[2020-02-06] MEDS ORDERED: ACETAMINOPHEN TAB 325 MG TAB PO PRN (08:33)
[2020-02-06] MEDS: LOSARTAN 25 MG TAB PO SCH (08:38)
--- NOTE | 2020-02-06 09:55 | P.PN ---
Subjective Progress Note Date: 02/06/20 64-year-old female one of Dr. Head's patient with past medical history of hypothyroidism, hyperlipidemia, chronic neuropathy and chronic depression who is also known to have history of chronic pain syndrome who developed to have significant dyspnea and shortness of breath for the last 3 days become much worse lately ended up coming to ED department at [facility] where was seen and evaluated she believe she had low-grade temperature and was concern about COVID 19 infection has been having worsening pain and body ache all over body as well she denies any abdominal pain or chest pain she denies any cough but significant shortness of breath with minimum exertion. Her lab testing showed negative influenza and coronavirus as well surprisingly her hemoglobin significantly down compared to her baseline almost about 40 g with significantly elevated BUN/creatinine Hemoccult was positive and when stressed out patient ended up complaining of mild mid abdominal discomfort with no clear bright red blood per rectum but? Of tarry stool. Patient was started on pantoprazole IV with type and cross 2 units of RBC with no transfusion at this point watch hemoglobin every 6 hours and consult gastroenterology patient most likely will need to go for at least an EGD and possible colonoscopy. 02/04: Hemoglobin this morning was 7.8 and patient was transfused 1 unit of packed RBCs with a repeat hemoglobin of 9.4. Patient gives history that she has had a colonoscopy near [address] Knox at [facility]. She has never had an EGD. She has not had a bowel movement since admission. She last saw Dr. Head 2-3 months ago but voices concerns about returning to see her and has been given the option of either following up with Dr. Cadet at the time of discharge or making arrangements to see another primary care physician. GI is on consult. Anticipate upper and lower endoscopies to be ordered. Patient is afebrile, heart rate 84, blood pressure 147/80, pulse ox 91% on room air. 02/05: Patient was seen today and followed by GI plan for EGD and colonoscopy tomorrow for 02/06. vital signs are stable patient is afebrile pulse ox 92% on room air respirations 16 blood pressure 97/61, pulse 92. Hemoglobin today was 8, will repeat in the morning. Patient has received a total of 1 unit of packed RBCs. Iron study studies are currently pending. Possible discharge tomorrow following procedure Objective - Vital Signs Vital signs: Vital Signs Temp 97.7 F 02/06/20 07:00 Pulse 92 02/06/20 07:00 Resp 16 02/06/20 07:00 BP 97/61 02/06/20 07:00 Pulse Ox 93 L 02/06/20 07:00 Intake & Output 02/05/20 02/06/20 02/06/20 18:59 06:59 18:59 Intake Total 600 360 Balance 600 360 Intake: Intake, IV Titration 600 Amount Sodium Chloride 0.9% 1, 600 000 ml @ 100 mls/hr IV . Q10H KIARA Rx#:[id number] Oral 360 Other: Voiding Method Toilet Toilet # Voids 1 1 - Exam Review of Systems CONSTITUTIONAL: Well-developed no acute respiratory distress. Denies fever, de nies chills EYES: No icterus sclerae, no conjunctivitis. EARS, NOSE, MOUTH, THROAT, and FACE: No sore throat, lymphadenopathy, carotid bruits or deformity. RESPIRATORY: Mild shortness of breath and cough. CARDIOVASCULAR: Positive PND orthopnea palpitation. GASTROINTESTINAL: Possible mild abdominal discomfort with nausea no vomiting. Denies bowel movement. GENITOURINARY: Negative for Hematuria or UTI, no kidney stones. INTEGUMENT/BREAST: Negative for any muscular injury with mild osteoarthritis.. HEMATOLOGIC/LYMPHATIC: Negative for bleed or purpura. MUSCULOSKELTAL: Generalized arthralgia and myalgia. NEURLOGICAL: No LOC, Sz or syncope, blurred vision dizziness or abnormality.. BEHAVIORAL/PSYCH: Negative. ENDOCRINE: Negative. Physical examination General Appearance: Alert, cooperative, no distress, appears stated age. Neck HEENT: Supple, no lymphadenopathy, no thyroid enlargement, no carotid bruits. Lungs: Decreased breath some bilaterally with fine rhonchi positive mild expiratory 2 wheezes. Chest Wall: Decrease expansion with deep inspiration no tenderness and no deformity was found on exam, no costochondral pain. Heart: Regular rate and rhythm, S1, S2 normal, no murmur, rub or gallop. Back: Symmetric, no curvature, ROM normal, no CVA tenderness. Abdomen: Soft positive bowel sounds slight discomfort in the midepigastric area and left lower quadrant and no rebound or rigidity. Extremities: Extremities normal, atraumatic, no cyanosis or edema. Pulses: 2+ and symmetric. Skin: Skin color, texture, tugor normal, no rashes or lesions. Neurologic: Alert oriented x3 cranial nerves II through XII intact, no motor deficit, no abnormal balance or gait. - Labs CBC & Chem 7: 02/06/20 06:44 02/06/20 06:44 Labs: Abnormal Lab Results - Last 24 Hours (Table) 02/05/20 02/06/20 02/06/20 Range/Units 16:39 06:44 06:44 RBC 2.59 L (3.80-5.40) m/uL Hgb 8.0 L (11.4-16.0) gm/dL Hct 25.3 L (34.0-46.0) % RDW 15.7 H (11.5-15.5) % Chloride 113 H (98-107) mmol/L BUN 24 H (7-17) mg/dL Glucose 104 H (74-99) mg/dL POC Glucose (mg/dL) 112 H (75-99) mg/dL Microbiology - Last 24 Hours (Table) 02/04/20 14:35 Blood Culture - Preliminary Blood No Growth after 24 hours Assessment and Plan Plan: Assessment and Plan Plan: 1 acute blood loss anemia status post transfusion of 1 unit of packed RBCs. 2 acute gastrointestinal bleed with positive stool for occult blood. Consult with GI with anticipated EGD and colonoscopy 02/06. Continue Protonix 40 mg IV twice daily. 3 acute kidney injury most likely from acute tubular necrosis with significant elevation and BUN to creatinine ratio at this point hydrate patient and watch the blood pressure and repeat BUN/creatinine continue to watch her urine output as well. 4 COPD without exacerbation: Patient has been on albuterol and budesonide cont inue both medication. 5 hypothyroidism: Continue patient on levothyroxine 125 g daily. 6 chronic depression: Has been on Wellbutrin SR 100 mg twice a day, duloxetine 60 mg twice a day, Seroquel 50 mg before meals supper time and 100 mg in the morning. On Zoloft 100 mg a day as well. 7 hypertension: Remain on losartan 25 mg a day. 8 chronic neuropathy: Has been on gabapentin 300 mg 3 times a day. 9 chronic pain syndrome: Remain on oxycodone 10 mg every 6 hours as needed combined with gabapentin. 10 DVT prophylaxis: Patient will have knee-high JUNIE hose. 11 GI prophylaxis: Remain on pantoprazole. CODE STATUS: Full code. Discharge plan: Home in the next 24 hours Impression and plan of care have been directed as dictated by the signing physician. Ashley Jacinto nurse practitioner acting as scribe for signing physician.
[2020-02-06] MEDS ORDERED: SODIUM CHLORIDE 0.9% 500 ML 500 ML IV ONE (10:18)
[2020-02-06 10:26] LABS: Glucose,Whole Blood 121 mg/dL (75-99)
[2020-02-06 10:48] LABS: Reticulocyte % 3.79 % (0.10-1.80)
[2020-02-06 11:07] LABS: Basophils % (A) 0 %; Eosinophils # (A) 0.1 k/uL (0-0.7); Eosinophils % (A) 3 %; HCT 23.8 % (34.0-46.0); HGB 7.5 gm/dL (11.4-16.0); Lymphocytes # (A) 0.9 k/uL (1.0-4.8); Lymphocytes % (A) 21 %; MCH 31.2 pg (25.0-35.0); MCHC 31.7 g/dL (31.0-37.0); MCV 98.6 fL (80.0-100.0); Macrocytosis Slight; Mean Platelet Volume 8.8; Monocytes # (A) 0.3 k/uL (0-1.0); Monocytes % (A) 8 %; Neutrophils # (A) 2.8 k/uL (1.3-7.7); Neutrophils % (A) 66 %; Platelet Count 156 k/uL (150-450); RBC 2.42 m/uL (3.80-5.40); RDW 15.6 % (11.5-15.5); WBC 4.3 k/uL (3.8-10.6)
[2020-02-06 11:17] LABS: % Iron Saturation 11.21 (12.00-45.00)
[2020-02-06 11:33] LABS: Folate, Serum 13.6 ng/mL
[2020-02-06] MEDS: SODIUM CHLORIDE 0.9% 1,000 ML IV SCH ×2 (13:25→23:55)
[2020-02-06] MEDS: THIAMINE 100 MG TAB PO SCH ×2 (15:39→16:29)
[2020-02-06 15:42] LABS: HCT 28.8 % (34.0-46.0); MCH 31.6 pg (25.0-35.0); MCV 98.9 fL (80.0-100.0); Macrocytosis Slight; Mean Platelet Volume 8.8; Platelet Count 153 k/uL (150-450); RBC 2.92 m/uL (3.80-5.40); RDW 15.2 % (11.5-15.5); WBC 5.4 k/uL (3.8-10.6)
[2020-02-06 15:44] LABS: HGB 9.2 gm/dL (11.4-16.0)
[2020-02-06] MEDS ORDERED: PEG 3350-NA SULF,BICARB,CL/KCL 4,000 ML BOTTLE PO ONE (16:00)
[2020-02-06] MEDS ORDERED: BISACODYL 5 MG TABLET.DR PO ONE (18:00)
--- NOTE | 2020-02-06 19:15 | P.PN ---
Subjective Progress Note Date: 02/06/20 Principal diagnosis: Normocytic normochromic anemia Patient is seen lying in bed tolerating her diet. No abdominal pain reported. No signs or symptoms of GI bleeding reported. Objective - Vital Signs Vital signs: Vital Signs Temp 98.0 F 02/06/20 15:14 Pulse 82 02/06/20 15:25 Resp 16 02/06/20 15:14 BP 100/62 02/06/20 15:14 Pulse Ox 99 02/06/20 15:14 Intake & Output 02/05/20 02/06/20 02/06/20 18:59 06:59 18:59 Intake Total 600 1210 Balance 600 1210 Intake: Intake, IV Titration 600 Amount Sodium Chloride 0.9% 1, 600 000 ml @ 100 mls/hr IV . Q10H [facility] Rx#:[id number] Oral 900 Blood Product 310 Rc As-1 Unit 310 [id number] Other: Voiding Method Toilet Toilet # Voids 1 1 1 - Exam On physical examination, patient appears comfortable in no apparent distress. HEAD: Normocephalic, atraumatic. EYES: No scleral icterus. No conjunctival injection. MOUTH: No lesions, tongue midline. NECK: Trachea midline, no gross abnormalities. ABDOMEN: Soft, obese. Bowel sounds are positive. No organomegaly. No guarding or rigidity. EXTREMITIES: No pedal edema. SKIN: No rashes, no jaundice. NEUROLOGIC: Alert and oriented x3. No focal deficits. - Labs CBC & Chem 7: 02/06/20 15:17 02/06/20 06:44 Labs: Abnormal Lab Results - Last 24 Hours (Table) 02/04/20 02/06/20 02/06/20 Range/Units 19:05 06:44 06:44 RBC 2.59 L (3.80-5.40) m/uL Hgb 8.0 L (11.4-16.0) gm/dL Hct 25.3 L (34.0-46.0) % RDW 15.7 H (11.5-15.5) % Lymphocytes # (1.0-4.8) k/uL Retic Count (0.10-1.80) % Chloride 113 H (98-107) mmol/L BUN 24 H (7-17) mg/dL Glucose 104 H (74-99) mg/dL POC Glucose (mg/dL) (75-99) mg/dL Iron 38 L (50-170) ug/dL % Saturation 11.21 L (12.00-45.00) Vitamin B12 1228.0 H (200.0-944.0) pg/mL Crossmatch See Detail 02/06/20 02/06/20 02/06/20 Range/Units 06:44 10:14 10:35 RBC 2.42 L (3.80-5.40) m/uL Hgb 7.5 L (11.4-16.0) gm/dL Hct 23.8 L (34.0-46.0) % RDW 15.6 H (11.5-15.5) % Lymphocytes # 0.9 L (1.0-4.8) k/uL Retic Count 3.79 H (0.10-1.80) % Chloride (98-107) mmol/L BUN (7-17) mg/dL Glucose (74-99) mg/dL POC Glucose (mg/dL) 121 H (75-99) mg/dL Iron (50-170) ug/dL % Saturation (12.00-45.00) Vitamin B12 (200.0-944.0) pg/mL Crossmatch 02/06/20 Range/Units 15:17 RBC 2.92 L (3.80-5.40) m/uL Hgb 9.2 L D (11.4-16.0) gm/dL Hct 28.8 L (34.0-46.0) % RDW (11.5-15.5) % Lymphocytes # (1.0-4.8) k/uL Retic Count (0.10-1.80) % Chloride (98-107) mmol/L BUN (7-17) mg/dL Glucose (74-99) mg/dL POC Glucose (mg/dL) (75-99) mg/dL Iron (50-170) ug/dL % Saturation (12.00-45.00) Vitamin B12 (200.0-944.0) pg/mL Crossmatch Microbiology - Last 24 Hours (Table) 02/04/20 14:35 Blood Culture - Preliminary Blood No Growth after 48 hours Assessment and Plan (1) Normocytic normochromic anemia Narrative/Plan: 64-year-old female with multiple medical comorbidities who presented to the hospital due to weakness and a constellation of other symptoms. She had reported diarrhea which improved as well as some abdominal pain which is also resolved. Reports some red bowel movements after drinking beat juice as well as possible dark bowel movements. No further bowel movements today. Hemoglobin was found to be depressed at 8.7 on presentation with normocytic indices. No gross bleeding reported. Remote history of colonoscopy which she believes was normal proximally 10 years ago and denies any history of EGD. She does use NSAIDs at home with ibuprofen for pain. Unclear etiology of anemia, may be secondary to chronic disease, cannot exclude a component of GI bleed given use of NSAIDs, or other etiology. Current Visit: Yes Status: Acute Code(s): D64.9 - ANEMIA, UNSPECIFIED SNOMED Code(s): 67170758 (2) Stool guaiac positive Current Visit: Yes Status: Acute Code(s): R19.5 - OTHER FECAL ABNORMALITIES SNOMED Code(s): 69729255 Plan: Supportive care Clear liquid diet, nothing by mouth after midnight Bowel prep ordered Plan for EGD and colonoscopy for evaluation of anemia on 02/07/2020 Labs for further investigation of anemia ordered Avoid NSAID use Continue to monitor hemoglobin and hematocrit and transfuse as needed Iron studies consistent with iron deficiency anemia and IV iron supplementation ordered Thank you for allowing us to participate in the care of the patient
[2020-02-06] MEDS: ATORVASTATIN 20 MG TAB PO SCH (21:54)
[2020-02-06] MEDS: MELATONIN 5 MG TABLET PO SCH (21:54)
[2020-02-06] MEDS: LORATADINE 10 MG TAB PO SCH (21:54)
[2020-02-06] MEDS: SODIUM FERRIC GLUCONAT-SUCROSE 125 MG in SODIUM CHLORIDE 0.9% 100 ML IVPB SCH (21:55)
[2020-02-07] MEDS: LEVOTHYROXINE 50 MCG TAB PO SCH (05:02)
[2020-02-07] MEDS: SYMBICORT 160-4.5 MCG INHALER INHALATION SCH ×2 (07:41→19:28)
[2020-02-07] MEDS: ALBUTEROL HFA INHALER INHALATION PRN ×3 (07:41→19:28)
[2020-02-07 08:06] LABS: HGB 9.3 gm/dL (11.4-16.0); MCH 31.9 pg (25.0-35.0); MCHC 33.2 g/dL (31.0-37.0); Mean Platelet Volume 8.7; Platelet Count 176 k/uL (150-450); RBC 2.92 m/uL (3.80-5.40); RDW 15.4 % (11.5-15.5); WBC 4.3 k/uL (3.8-10.6)
[2020-02-07] MEDS: oxyCODONE-APAP 10-325MG 1 EACH TAB PO PRN ×2 (08:37→19:51)
[2020-02-07] MEDS ORDERED: PROPOFOL 10 MG/ML 20 ML VIAL IV ONE (09:20)
[2020-02-07] MEDS ORDERED: IV FLUID CONTINUATION 1,000 ML IV ONE (09:22)
[2020-02-07] MEDS ORDERED: SODIUM CHLORIDE 0.9% 500 ML 500 ML IV ONE (09:39)
--- NOTE | 2020-02-07 09:52 | P.PCN ---
Date of Procedure: 02/07/20 Description of Procedure: Brief history: 64-year-old female with a medical history significant for hyperlipidemia, hypothyroidism, neuropathy and depression who presented with complaints of weakness and shortness of breath. The patient reports worsening weakness and shortness of breath over the past few days prior to presentation. She presented to the hospital over concerns of possible infection with the novel coronavirus, however testing was negative. The patient was found to have a normocytic anemia on presentation with hemoglobin of 8.7 currently 9.4 status post transfusion. WBC 5.8, platelet count 202,000, total bilirubin 0.4, alkaline phosphatase 49, AST 30 and ALP 18. The patient believes her last colonoscopy was approximately 10 years ago in unremarkable and does not believe she has had an EGD in the past. She denies any history of peptic ulcer disease. She does report ibuprofen use intermittently. She denies any change in bowel habits but may have seen some dark stool as well as red stool after drinking juice. She also had 3-4 days of diarrhea which is currently resolved and describes some abdominal pain above the belly button which is also already improved. Procedure performed: Esophagogastroduodenoscopy with biopsy Colonoscopy aborted/failed secondary to poor prep Estimated blood loss: Minimal. Preoperative diagnosis: Iron deficiency anemia, symptomatic anemia Anesthesia: MAC Procedure: After informed consent was obtained from the patient was brought into the endoscopy unit and IV sedation was administered by anesthesia under continuous monitoring. Initially upper endoscopy was done. The Olympus GF 190 video endoscope was inserted into the mouth and esophagus intubated without any difficulty and was gradually advanced into the stomach and duodenum and carefully examined. The bulb and second part of the duodenum appeared normal, with biopsies taken to rule out celiac sprue. The scope was then withdrawn into the stomach adequately insufflated with air and upon careful examination the antrum and body, cardia and fundus appeared normal, except for some mild scattered erythema in the antrum and body suggestive of mild gastritis with biopsies taken. The scope was then withdrawn into the esophagus. The GE junction was located at 36 cm to the incisors, with a small 1 cm hiatal hernia noted. Biopsies were taken at the GE junction. It appeared regular with no erythema erosions or ulcerations. Rest of the esophagus appeared normal. Patient tolerated the procedure well. At this time the patient continued to remain sedation. Initial digital rectal examination was normal. Olympus CF 190 video colonoscope was then inserted into the rectum and gradually advanced and large amount of dark liquid stool throughout rectum prohibiting visualization of the occult and increasing risk of the procedure. It was at this time the procedure was aborted. The patient will continue her bowel prep and because taken for colonoscopy tomorrow. Impression: 1. Mild gastritis antrum and body, biopsied. Biopsies of the duodenum and GE junction. 2. Poor prep on colonoscopy with dark liquid stool throughout the visualized colon. Procedure was aborted. Recommendations: Findings of this examination were discussed with the patient. Okay for liquid diet. Patient should continue bowel prep today. She only completed one third of the GoLGIVVERLY yesterday. Magnesium citrate orally will be ordered for this evening. Nothing by mouth after midnight. Plan for colonoscopy tomorrow.
--- NOTE | 2020-02-07 11:02 | P.PN ---
Subjective Progress Note Date: 02/07/20 64-year-old female one of Dr. Head's patient with past medical history of hypothyroidism, hyperlipidemia, chronic neuropathy and chronic depression who is also known to have history of chronic pain syndrome who developed to have significant dyspnea and shortness of breath for the last 3 days become much worse lately ended up coming to ED department at [facility] where was seen and evaluated she believe she had low-grade temperature and was concern about COVID 19 infection has been having worsening pain and body ache all over body as well she denies any abdominal pain or chest pain she denies any cough but significant shortness of breath with minimum exertion. Her lab testing showed negative influenza and coronavirus as well surprisingly her hemoglobin significantly down compared to her baseline almost about 40 g with significantly elevated BUN/creatinine Hemoccult was positive and when stressed out patient ended up complaining of mild mid abdominal discomfort with no clear bright red blood per rectum but? Of tarry stool. Patient was started on pantoprazole IV with type and cross 2 units of RBC with no transfusion at this point watch hemoglobin every 6 hours and consult gastroenterology patient most likely will need to go for at least an EGD and possible colonoscopy. 02/04: Hemoglobin this morning was 7.8 and patient was transfused 1 unit of packed RBCs with a repeat hemoglobin of 9.4. Patient gives history that she has had a colonoscopy near [address] Knox at [facility]. She has never had an EGD. She has not had a bowel movement since admission. She last saw Dr. Head 2-3 months ago but voices concerns about returning to see her and has been given the option of either following up with Dr. Cadet at the time of discharge or making arrangements to see another primary care physician. GI is on consult. Anticipate upper and lower endoscopies to be ordered. Patient is afebrile, heart rate 84, blood pressure 147/80, pulse ox 91% on room air. 02/05: Patient was seen today and followed by GI plan for EGD and colonoscopy tomorrow for 02/06. vital signs are stable patient is afebrile pulse ox 92% on room air respirations 16 blood pressure 97/61, pulse 92. Hemoglobin today was 8, will repeat in the morning. Patient has received a total of 1 unit of packed RBCs. Iron study studies are currently pending. Possible discharge tomorrow following procedure 02/06 patient was seen and examined today. Awaiting colonoscopy procedure with Dr. pappas. Labs were reviewed hemoglobin stable at 9.3. vital signs are stable patient remains afebrile heart rate 86 blood pressure 155/86 pulse ox 92% on room air.An a team was called on patient due to hypotension and being lethargic. Patient had not taken her psych meds for the last couple weeks at home. 500 mL fluid bolus was given and Seroquel is resumed. Patient is alert and orientated this morning. Objective - Vital Signs Vital signs: Vital Signs Temp 98.8 F 02/07/20 07:00 Pulse 86 02/07/20 07:32 Resp 16 02/07/20 07:32 BP 155/86 02/07/20 07:00 Pulse Ox 92 L 02/07/20 07:00 Intake & Output 02/06/20 02/07/20 02/07/20 18:59 06:59 18:59 Intake Total 1210 100 Balance 1210 100 Intake: IV 100 Oral 900 Blood Product 310 Rc As-1 Unit 310 [id number] Other: Voiding Method Toilet Toilet # Voids 1 1 # Bowel Movements 1 - Exam Review of Systems CONSTITUTIONAL: Well-developed no acute respiratory distress. Denies fever, denies chills EYES: No icterus sclerae, no conjunctivitis. EARS, NOSE, MOUTH, THROAT, and FACE: No sore throat, lymphadenopathy, carotid bruits or deformity. RESPIRATORY: Mild shortness of breath and cough. CARDIOVASCULAR: Positive PND orthopnea palpitation. GASTROINTESTINAL: Possible mild abdominal discomfort with nausea no vomiting. Liquid bowel movementS due to colon prep. GENITOURINARY: Negative for Hematuria or UTI, no kidney stones. INTEGUMENT/BREAST: Negative for any muscular injury with mild osteoarthritis.. HEMATOLOGIC/LYMPHATIC: Negative for bleed or purpura. MUSCULOSKELTAL: Generalized arthralgia and myalgia. NEURLOGICAL: No LOC, Sz or syncope, blurred vision dizziness or abnormality.. BEHAVIORAL/PSYCH: Negative. ENDOCRINE: Negative. Physical examination General Appearance: Alert, cooperative, no distress, appears stated age. Neck HEENT: Supple, no lymphadenopathy, no thyroid enlargement, no carotid bruits. Lungs: Decreased breath some bilaterally with fine rhonchi positive Chest Wall: Decrease expansion with deep inspiration no tenderness and no deformity was found on exam, no costochondral pain. Heart: Regular rate and rhythm, S1, S2 normal, no murmur, rub or gallop. Back: Symmetric, no curvature, ROM normal, no CVA tenderness. Abdomen: Soft positive bowel sounds slight discomfort in the midepigastric area and left lower quadrant and no rebound or rigidity. Extremities: Extremities normal, atraumatic, no cyanosis or edema. Pulses: 2+ and symmetric. Skin: Skin color, texture, tugor normal, no rashes or lesions. Neurologic: Alert oriented x3 cranial nerves II through XII intact, no motor deficit, no abnormal balance or gait. - Labs CBC & Chem 7: 02/07/20 07:31 02/06/20 06:44 Labs: Abnormal Lab Results - Last 24 Hours (Table) 02/04/20 02/06/20 02/06/20 Range/Units 19:05 06:44 06:44 RBC (3.80-5.40) m/uL Hgb (11.4-16.0) gm/dL Hct (34.0-46.0) % RDW (11.5-15.5) % Lymphocytes # (1.0-4.8) k/uL Retic Count 3.79 H (0.10-1.80) % Iron 38 L (50-170) ug/dL % Saturation 11.21 L (12.00-45.00) Vitamin B12 1228.0 H (200.0-944.0) pg/mL Crossmatch See Detail 02/06/20 02/06/20 02/07/20 Range/Units 10:35 15:17 07:31 RBC 2.42 L 2.92 L 2.92 L (3.80-5.40) m/uL Hgb 7.5 L 9.2 L D 9.3 L (11.4-16.0) gm/dL Hct 23.8 L 28.8 L 28.0 L (34.0-46.0) % RDW 15.6 H (11.5-15.5) % Lymphocytes # 0.9 L (1.0-4.8) k/uL Retic Count (0.10-1.80) % Iron (50-170) ug/dL % Saturation (12.00-45.00) Vitamin B12 (200.0-944.0) pg/mL Crossmatch Microbiology - Last 24 Hours (Table) 02/04/20 14:35 Blood Culture - Preliminary Blood No Growth after 48 hours Assessment and Plan Plan: 1 acute blood loss anemia status post transfusion of 1 unit of packed RBCs. 2 acute gastrointestinal bleed with positive stool for occult blood. Consult with GI with anticipated EGD and colonoscopy today. Continue Protonix 40 mg IV twice daily. 3 acute kidney injury most likely from acute tubular necrosis with significant elevation and BUN to creatinine ratio at this point hydrate patient and watch the blood pressure and repeat BUN/creatinine continue to watch her urine output as well. 4 COPD without exacerbation: Patient has been on albuterol and budesonide continue both medication. 5 hypothyroidism: Continue patient on levothyroxine 125 g daily. 6 chronic depression: Has been on Wellbutrin SR 100 mg twice a day, duloxetine 60 mg twice a day, Seroquel 50 mg before meals supper time and 100 mg in the morning. On Zoloft 100 mg a day as well. Patient had not been taking these prior to admission due to not feeling well. 7 hypertension: Remain on losartan 25 mg a day. 8 chronic neuropathy: Has been on gabapentin 300 mg 3 times a day. 9 chronic pain syndrome: Remain on oxycodone 10 mg every 6 hours as needed stopped gabapentin at this time. 10 DVT prophylaxis: Patient will have knee-high JUNIE hose. 11 GI prophylaxis: Remain on pantoprazole. 12 acute delirium: Likely related to resuming psych meds. Will do Seroquel at bedtime at this time. CODE STATUS: Full code. Discharge plan: Home in the next 24-48 hours Impression and plan of care have been directed as dictated by the signing physician. SONI JOHNSTON nurse practitioner acting as scribe for signing physician.
[2020-02-07] MEDS: THIAMINE 100 MG TAB PO SCH ×2 (12:06→17:30)
[2020-02-07] MEDS: PANTOPRAZOLE 40 MG/10 ML VIAL IV SCH ×2 (12:06→20:12)
[2020-02-07] MEDS: LOSARTAN 25 MG TAB PO SCH (12:06)
[2020-02-07] MEDS: METHYLPHENIDATE HCL 10 MG TAB PO SCH ×2 (12:06→20:12)
[2020-02-07] MEDS: LACTATED RINGERS 1,000 ML IV SCH (12:07)
[2020-02-07] MEDS: QUEtiapine 50 MG TAB PO SCH (12:07)
[2020-02-07] MEDS ORDERED: MAGNESIUM CITRATE 296 ML BOTTLE PO ONE (18:00)
[2020-02-07] MEDS: SODIUM FERRIC GLUCONAT-SUCROSE 125 MG in SODIUM CHLORIDE 0.9% 100 ML IVPB SCH (20:11)
[2020-02-07] MEDS: SODIUM CHLORIDE 0.9% 1,000 ML IV SCH (20:12)
[2020-02-07] MEDS: ATORVASTATIN 20 MG TAB PO SCH (20:12)
[2020-02-07] MEDS: LORATADINE 10 MG TAB PO SCH (20:12)
[2020-02-07] MEDS: MELATONIN 5 MG TABLET PO SCH (20:12)
[2020-02-08] MEDS: oxyCODONE-APAP 10-325MG 1 EACH TAB PO PRN ×2 (05:31→14:53)
[2020-02-08] MEDS: LEVOTHYROXINE 50 MCG TAB PO SCH (05:34)
[2020-02-08] MEDS: SODIUM CHLORIDE 0.9% 1,000 ML IV SCH ×2 (07:09→11:34)
[2020-02-08] MEDS: LACTATED RINGERS 1,000 ML IV SCH (07:10)
[2020-02-08] MEDS ORDERED: MIDAZOLAM 2 MG/2 ML VIAL ONE (08:29)
[2020-02-08] MEDS ORDERED: LIDOCAINE 1% INJ 10MG/ML (20 ML MDV) ONE (08:29)
[2020-02-08] MEDS ORDERED: PROPOFOL 10 MG/ML 20 ML VIAL IV ONE (08:29)
[2020-02-08] MEDS ORDERED: fentaNYL (PF) 50 MCG/ML 2 ML AMP ONE (08:29)
[2020-02-08] MEDS ORDERED: IV FLUID CONTINUATION 1,000 ML IV ONE ×2 (08:33)
--- NOTE | 2020-02-08 09:11 | P.PCN ---
Date of Procedure: 02/08/20 Description of Procedure: BRIEF HISTORY: 64-year-old female with a medical history significant for hyperlipidemia, hypothyroidism, neuropathy and depression who presented with complaints of weakness and shortness of breath. The patient reports worsening weakness and shortness of breath over the past few days prior to presentation. She presented to the hospital over concerns of possible infection with the novel coronavirus, however testing was negative. The patient was found to have a normocytic anemia on presentation with hemoglobin of 8.7 currently 9.3 status post transfusion. The patient believes her last colonoscopy was approximately 10 years ago in unremarkable and did not believe she has had an EGD in the past. She denies any history of peptic ulcer disease. She does report ibuprofen use intermittently. She denies any change in bowel habits but may have seen some dark stool as well as red stool after drinking juice. yesterday she was taken for EGD findings of gastritis. PROCEDURE PERFORMED: Colonoscopy. PREOPERATIVE DIAGNOSIS: Iron deficiency anemia. ESTIMATED BLOOD LOSS: Minimal. IV sedation per Anesthesia. PROCEDURE: After informed consent was obtained, the patient, was brought into the endoscopy unit. IV sedation was administered by Anesthesia under continuous monitoring. Digital rectal examination was normal. Initially the Olympus CF-190 flexible video colonoscope was then inserted in the rectum, gradually advanced into the cecum without any difficulty. Careful examination was performed as the scope was gradually being withdrawn. Ileocecal valve and the appendiceal orifice were visualized and appeared normal. Prep was excellent. Mucosa of the cecum, ascending colon, transverse colon, descending colon, sigmoid colon, and rectum appeared normal. Retroflexion was performed in the rectum and no lesions were seen. The patient tolerated the procedure well. IMPRESSION: Normal-appearing colon from rectum to cecum. RECOMMENDATIONS: Findings of this examination were discussed with the patient. At this time we'll proceed with video capsule endoscopy. Nothing by mouth for now. Await pathology from EGD.
--- NOTE | 2020-02-08 10:36 | P.DS ---
Providers Date of admission: 02/04/20 18:54 Expected date of discharge: 02/08/20 Attending physician: Francisco Vitale Consults: 02/04/20 18:47 Consult Physician Routine Consulting Provider: Salma Pina Consult Reason/Comments: GI bleed and anemia Do you want consulting provider notified?: Yes Primary care physician: Brooke Head [facility] Course: 64-year-old female one of Dr. Head's patient with past medical history of hypothyroidism, hyperlipidemia, chronic neuropathy and chronic depression who is also known to have history of chronic pain syndrome who developed to have sig nificant dyspnea and shortness of breath for the last 3 days become much worse lately ended up coming to ED department at [facility] where was seen and evaluated she believe she had low-grade temperature and was concern about COVID 19 infection has been having worsening pain and body ache all over body as well she denies any abdominal pain or chest pain she denies any cough but significant shortness of breath with minimum exertion. Her lab testing showed negative influenza and coronavirus as well surprisingly her hemoglobin significantly down compared to her baseline almost about 40 g with significantly elevated BUN/creatinine Hemoccult was positive and when stressed out patient ended up complaining of mild mid abdominal discomfort with no clear bright red blood per rectum but? Of tarry stool. Patient was started on pantoprazole IV with type and cross 2 units of RBC with no transfusion at this point watch hemoglobin every 6 hours and consult gastroenterology patient most likely will need to go for at least an EGD and possible colonoscopy. 02/04: Hemoglobin this morning was 7.8 and patient was transfused 1 unit of packed RBCs with a repeat hemoglobin of 9.4. Patient gives history that she has had a colonoscopy near [address] Knox at [facility]. She has never had an EGD. She has not had a bowel movement since admission. She last saw Dr. Head 2-3 months ago but voices concerns about returning to see her and has been given the option of either following up with Dr. Cadet at the time of discharge or making arrangements to see another primary care physician. GI is on consult. Anticipate upper and lower endoscopies to be ordered. Patient is afebrile, heart rate 84, blood pressure 147/80, pulse ox 91% on room air. 02/05: Patient was seen today and followed by GI plan for EGD and colonoscopy tomorrow for 02/06. vital signs are stable patient is afebrile pulse ox 92% on room air respirations 16 blood pressure 97/61, pulse 92. Hemoglobin today was 8, will repeat in the morning. Patient has received a total of 1 unit of packed RBCs. Iron study studies are currently pending. Possible discharge tomorrow following procedure 02/06 patient was seen and examined today. Awaiting colonoscopy procedure with Dr. mcdermott. Labs were reviewed hemoglobin stable at 9.3. vital signs are stable patient remains afebrile heart rate 86 blood pressure 155/86 pulse ox 92% on room air.An a team was called on patient due to hypotension and being lethargic. Patient had not taken her psych meds for the last couple weeks at home. 500 mL fluid bolus was given and Seroquel is resumed. Patient is alert and orientated this morning. 02/07: Patient had colonoscopy done this morning with Dr. Zavala, findings showed normal-appearing colon from rectum to cecum. Plan for patient to discharge home later today after video capsule endoscopy is done. EGD showed mild gastritis and biopsies were obtained. Patient will be discharged on Protonix 40 mg daily. Blood culture showed no growth after 72 hours. Vital signs are stable patient remains afebrile, heart rate 68 blood pressure 153/71 pulse ox 96% on room air. Patient will follow-up with Dr. Head in [address] Mcdermott in 2 weeks patient is going home with self-care. Acute delirium has resolved. Patient will be discharged on Seroquel 50 mg daily and patient to follow-up with Dr. Head for adjustment on psych meds. Discharge diagnosis: 1 acute blood loss with anemia 2 acute gastrointestinal bleed 3 acute kidney injury 4 COPD without exacerbation: 5 hypothyroidism: 6 chronic depression: 7 hypertension: 8 chronic neuropathy: 9 chronic pain syndrome: 12 acute delirium: Discharge plan: Home with self care Impression and plan of care have been directed as dictated by the signing physician. SONI JOHNSTON nurse practitioner acting as scribe for signing physician. Patient Condition at Discharge: Fair Plan - Discharge Summary Discharge Rx Participant: Yes New Discharge Prescriptions: New Pantoprazole Sodium [Protonix] 40 mg PO DAILY #30 tablet. Thiamine [Vitamin B-1] 100 mg PO BID@1200,1700 tab Continue oxyCODONE-APAP 10-325MG [Percocet 10-325 mg] 1 tab PO TID PRN PRN Reason: Pain Melatonin 10 mg PO HS tablet Loratadine [Claritin] 10 mg PO HS Budesonide/Formoterol Fumarate [Symbicort 160-4.5 Mcg Inhaler] 2 puff INHALATION RT-BID Simvastatin [Zocor] 40 mg PO HS Risedronate Sodium [Risedronate Sodium Dr] 35 mg PO DEVRIES Methylphenidate HCl [Ritalin] 10 mg PO BID Losartan Potassium [Cozaar] 25 mg PO DAILY Levothyroxine Sodium 150 mcg PO DAILY Fluticasone Nasal [place] [Flonase Nasal [place]] 2 spr EA NOSTRIL BID PRN PRN Reason: Allergy Symptoms Albuterol Sulfate [Proair Hfa] 2 puff INHALATION RT-Q6H PRN PRN Reason: Shortness Of Breath Changed QUEtiapine [SEROquel] 50 mg PO DAILY #0 Discontinued Gabapentin [Neurontin] 300 mg PO TID DULoxetine HCL [Cymbalta] 60 mg PO BID buPROPion HCL [Wellbutrin SR] 100 mg PO BID Discharge Medication List oxyCODONE-APAP 10-325MG [Percocet 10-325 mg] 1 tab PO TID PRN 09/20/16 [History] Melatonin 10 mg PO HS tablet 09/22/16 [Rx] Albuterol Sulfate [Proair Hfa] 2 puff INHALATION RT-Q6H PRN 02/04/20 [History] Budesonide/Formoterol Fumarate [Symbicort 160-4.5 Mcg Inhaler] 2 puff INHALATION RT-BID 02/04/20 [History] Fluticasone Nasal [place] [Flonase Nasal [place]] 2 spr EA NOSTRIL BID PRN 02/04/20 [History] Levothyroxine Sodium 150 mcg PO DAILY 02/04/20 [History] Loratadine [Claritin] 10 mg PO HS 02/04/20 [History] Losartan Potassium [Cozaar] 25 mg PO DAILY 02/04/20 [History] Methylphenidate HCl [Ritalin] 10 mg PO BID 02/04/20 [History] Risedronate Sodium [Risedronate Sodium Dr] 35 mg PO DEVRIES 02/04/20 [History] Simvastatin [Zocor] 40 mg PO HS 02/04/20 [History] Pantoprazole Sodium [Protonix] 40 mg PO DAILY #30 tablet. 02/08/20 [Rx] QUEtiapine [SEROquel] 50 mg PO DAILY #0 02/08/20 [Rx] Thiamine [Vitamin B-1] 100 mg PO BID@1200,1700 tab 02/08/20 [Rx] Follow up Appointment(s)/Referral(s): Brooke Head MD [Primary Care Provider] - 1 Week Hung Mcdermott MD [STAFF PHYSICIAN] - 2 Weeks Discharge Disposition: HOME SELF-CARE
[2020-02-08] MEDS ORDERED: SIMETHICONE 40 MG/0.6 ML DROPS 2,000 MG/30 ML BOTTLE PO ONE (10:45)
[2020-02-08] MEDS: PANTOPRAZOLE 40 MG/10 ML VIAL IV SCH (11:15)
[2020-02-08] MEDS: LOSARTAN 25 MG TAB PO SCH (11:15)
[2020-02-08] MEDS: METHYLPHENIDATE HCL 10 MG TAB PO SCH (11:16)
[2020-02-08] MEDS: QUEtiapine 50 MG TAB PO SCH (11:30)
[2020-02-08] MEDS: THIAMINE 100 MG TAB PO SCH ×2 (11:33→16:50)
[2020-02-08] MEDS: ALBUTEROL HFA INHALER INHALATION PRN (11:47)
[2020-02-08] MEDS: SYMBICORT 160-4.5 MCG INHALER INHALATION SCH (11:47)
[2020-02-08 12:43] VITALS: BMI 21.6
[2020-02-08 15:41] VITALS: BP 169/94; PULSE 84; TEMP 98.3
[2020-02-08 15:52] VITALS: RESP 16
[2020-02-10] MEDS ORDERED: RISEDRONATE SODIUM 35 MG PO SCH (07:00)
== END 2020-02-08 18:49 | disposition home or self-care (01) | DRG 377 ==
LOC: EC 13:59 → 4SSUR 18:54
PROVIDERS: ADMIT Internal Medicine Geriatric Medicine; ATTEND Internal Medicine Geriatric Medicine
DX: K29.71 Gastritis, unspecified, with bleeding (principal); N17.0 Acute kidney failure with tubular necrosis; D62 Acute posthemorrhagic anemia; F05 Delirium due to known physiological condition; E03.9 Hypothyroidism, unspecified; E78.5 Hyperlipidemia, unspecified; F17.200 Nicotine dependence, unspecified, uncomplicated; D50.9 Iron deficiency anemia, unspecified; Z96.60 Presence of unspecified orthopedic joint implant; F32.9 Major depressive disorder, single episode, unspecified; G62.9 Polyneuropathy, unspecified; G89.4 Chronic pain syndrome; Z20.828 Contact with and (suspected) exposure to other viral communicable diseases; I10 Essential (primary) hypertension; J44.9 Chronic obstructive pulmonary disease, unspecified; K44.9 Diaphragmatic hernia without obstruction or gangrene; Z53.9 Procedure and treatment not carried out, unspecified reason; Z86.14 Personal history of Methicillin resistant Staphylococcus aureus infection; Z98.890 Other specified postprocedural states; Z79.51 Long term (current) use of inhaled steroids; Z79.890 Hormone replacement therapy; Z79.899 Other long term (current) drug therapy; Z79.891 Long term (current) use of opiate analgesic
CPT/HCPCS: 36415; 43239; 45378; 71045; 80048; 80053; 82272; 82607; 82728; 82746; 83540; 83550; 83605; 83615; 83735; 84145; 85025; 85027; 85045; 85379; 85610; 85730; 86140; 86850; 86900; 86901; 86920; 87040; 87502; 87635; 88305; 91110; 93005; 94640; 94760; 99285

== ENCOUNTER → 2020-05-26 | Outpatient (CLI) | payer MEDICARE ==
--- NOTE | 2020-05-27 07:59 | CTL ---
EXAMINATION TYPE: CT Low Dose Lung DATE OF EXAM ORDERED: 05/26/2020 HISTORY: History of tobacco use. Lung cancer screening CT DLP: 56.[address] CTDI: 1.7 mGy Automated exposure control for dose reduction was used. SCREENING VISIT: First study COMPARISON: Chest x-ray February 04, 2020. TECHNIQUE: Low dose computed tomography scan was performed through the chest at 1 mm thick sections a nd reconstructed images in the coronal plane at [address] DIAGNOSTIC QUALITY: Satisfactory FINDINGS: LUNG NODULES: None. Incidental medial 3 mm calcified nodule or granuloma right lung base axial image 229. LUNGS: COPD: Severity: Mild to moderate greatest in the upper lungs Fibrosis: Severity: Mild linear scarring in the bases Lymph nodes: No greater than 1 cm noncalcified. Calcified subcentimeter right hilar lymph nodes noted . Other findings: None BILATERAL PLEURAL SPACE: Effusion: None Calcification: None Thickening: None Pneumothorax: None HEART: Heart Size: Normal Coronary calcification: None Pericardial effusion: None OTHER FINDINGS: Upper abdomen: There is 9 mm hypodense lesion hepatic dome/213 presumed benign. Bony thorax: Somewhat demineralized. Mild height loss with sclerosis superior T12 endplate. Supraclavicular region: None. Other: Some calcification at level of the aortic valve. IMPRESSION: Evidence of old granulomatous disease. Background mild to moderate underlying emphysemato us change. No suspicious pulmonary nodules. FOLLOW UP CT CHEST RECOMMENDATION: Annual low-dose lung screening CT CT LUNG RAD: Lung-Rad 2 Benign Appearance or Behavior
== END | disposition home or self-care (01) ==
LOC: RADCTMAIN 16:59
PROVIDERS: ATTEND Family Medicine
DX: Z12.2 Encounter for screening for malignant neoplasm of respiratory organs (principal); F17.210 Nicotine dependence, cigarettes, uncomplicated; J43.9 Emphysema, unspecified; D71 Functional disorders of polymorphonuclear neutrophils

== ENCOUNTER 2020-08-27 07:58 | Day surgery (SDC) | payer MEDICARE ==
[2020-08-25 15:34] VITALS: BMI 20.5
[~2020-08-27 07:58] MED LIST: LACTATED RINGERS 1,000 ML IV SCH; LIDOCAINE 1% (10MG/ML) FOR IV START INTRADERMA PRN; TETRACAINE 0.5% OPHTH (PF) DROPS 4 ML BTL OP ONE
[2020-08-27] MEDS: CYCLOPENTOLATE 1% OPHTH SOLN 2 ML BTL OP ONE ×3 (08:28→08:41)
[2020-08-27 08:30] VITALS: RESP 18; TEMP 98.8
[2020-08-27] MEDS: PHENYLEPHRINE 2.5% OPHTH DRP 2ML OP NR ×3 (08:31→08:44)
[2020-08-27] MEDS ORDERED: MIDAZOLAM 2 MG/2 ML VIAL ONE (09:41)
[2020-08-27] MEDS ORDERED: fentaNYL (PF) 50 MCG/ML 2 ML AMP ONE (09:41)
[2020-08-27] MEDS ORDERED: EPINEPHrine (PF) 0.3 ML in BALANCED SALT IRRIG SOLN COMB2 500 ML IRRIGATION ONE (10:00)
[2020-08-27] MEDS ORDERED: DUOVISC KIT (GREEN BOX) INTRAOCULA ONE (10:01)
[2020-08-27] MEDS ORDERED: BALANCED SALT IRRIG SOLN COMB2 15 ML IRRIG.SOLN IRRIGATION ONE (10:01)
[2020-08-27] MEDS: MOXIFLOXACIN HCL 0.5% DROPS 3 ML BTL OP ONE ×2 (10:02→10:10)
[2020-08-27] MEDS: TIMOLOL 0.5% OPHTH DROPS 5 ML BTL OP ONE ×2 (10:02→10:10)
[2020-08-27] MEDS ORDERED: LIDOCAINE 1% (PF) 10MG/ML VIAL MISCELLANE ONE (10:02)
--- NOTE | 2020-08-27 10:14 | P.OP ---
Date of Procedure: 08/27/20 Preoperative Diagnosis: NS & CS Postoperative Diagnosis: NS & CS Procedure(s) Performed: PIOL, OD Implants: [id number] 22.0 Anesthesia: MAC Surgeon: Mathew Rodarte Pathology: none sent Condition: stable Disposition: same day Indications for Procedure: blurry vision Operative Findings: no complications
[2020-08-27 11:13] VITALS: BP 158/88; PULSE 77
--- NOTE | 2020-08-28 00:55 | OP ---
OPERATIVE REPORT DATE OF SURGERY: August 27, 2020. SURGEON: Dr. Mathew Rodarte PREOPERATIVE DIAGNOSIS: Nuclear sclerosis, cortical sclerosis. POSTOPERATIVE DIAGNOSIS: Nuclear sclerosis, cortical sclerosis. OPERATION: Phacoemulsification of cataract and intraocular lens implant of the right eye. ESTIMATED BLOOD LOSS: Zero. SPECIMEN TAKEN: None. NARRATIVE: After obtaining the appropriate consent, the patient was brought to the Operating Room where the patient was placed under cardiac monitoring and prepped and draped in the usual sterile manner. At the 11 o'clock position a 15 degree super sharp blade was used to create a paracentesis followed by instillation of 1% Xylocaine MPF 50:50 mix with BSS into the anterior chamber. This was followed by Duovisc to stabilize the anterior chamber. At the 9 o'clock position a self-sealing corneal flap incision was created using 2.8 mm heron keratome. A cystotome was used to initiate a continuous tear capsulorrhexis which was completed with the Utrata forceps. A Binkhorst cannula was used to hydrodissect the lens nucleus followed by hydrodelineation. Phacoemulsification of the lens was performed utilizing phaco chop in 22.19 seconds at 18% power. The remaining cortical material was removed using the irrigation aspiration mode followed by additional 1% Xylocaine MPF into the anterior chamber followed by viscoelastic to stabilize the capsular bag. A Bausch and Lomb MX60E 22.0 diopters posterior chamber lens was placed into the capsular bag without difficulty. The remaining viscoelastic material was removed from the anterior chamber with the irrigation/aspiration. Balanced salt solution was used to normalize the intraocular pressure. The incision was checked for watertight integrity. The patient then received two drops of 0.5% timolol followed by two drops Vigamox, was lightly patched and shielded in the usual manner. There were no complications from the procedure. The patient tolerated the procedure well and was returned to recovery in good condition. MMODL / IJN: [id number] /
== END 2020-08-27 11:47 | disposition home or self-care (01) ==
LOC: OR 07:58
PROVIDERS: ATTEND Ophthalmology
DX: H25.13 Age-related nuclear cataract, bilateral (principal); H16.223 Keratoconjunctivitis sicca, not specified as Sjogren's, bilateral; H00.026 Hordeolum internum left eye, unspecified eyelid; H00.023 Hordeolum internum right eye, unspecified eyelid; H52.4 Presbyopia; E78.5 Hyperlipidemia, unspecified; J44.9 Chronic obstructive pulmonary disease, unspecified; F17.210 Nicotine dependence, cigarettes, uncomplicated; M19.90 Unspecified osteoarthritis, unspecified site; Z96.642 Presence of left artificial hip joint; Z98.890 Other specified postprocedural states; I10 Essential (primary) hypertension; F32.9 Major depressive disorder, single episode, unspecified; F41.8 Other specified anxiety disorders; E07.9 Disorder of thyroid, unspecified; Z82.49 Family history of ischemic heart disease and other diseases of the circulatory system; Z83.49 Family history of other endocrine, nutritional and metabolic diseases; Z79.1 Long term (current) use of non-steroidal anti-inflammatories (NSAID); Z79.83 Long term (current) use of bisphosphonates; Z79.890 Hormone replacement therapy; Z79.891 Long term (current) use of opiate analgesic; Z79.51 Long term (current) use of inhaled steroids; Z91.040 Latex allergy status
CPT/HCPCS: 66984; C1780; J2250; J0171; J3010; J2001

== ENCOUNTER → 2022-06-03 | Outpatient (CLI) | payer MEDICARE ==
--- NOTE | 2022-06-03 14:02 | BD ---
EXAMINATION TYPE: Axial Bone Density DATE OF EXAM: 06/03/2022 COMPARISON: NONE CLINICAL HISTORY: 66 years year old Female. ICD-10 CODE: M81.0 AGE RELATED OSTEOPOROSIS Height: 64 Weight: 131.1 FRAX RISK QUESTIONS: Alcohol (3 or more units per day): NO Family History (Parent hip fracture): NO Glucocorticoids (More than 3mos): NO History of Fracture in Adulthood: LT HIP Secondary Osteoporosis: 1. Type 1 Diabetes: NO 2. Hyperthyroidism: NO 3. Menopause before 45: YES 4. Malnutrition: NO 5. Chronic liver disease: NO Rheumatoid Arthritis: NO Current Tobacco Use: YES RISK FACTORS HISTORY OF: Hip Fracture (Right/Left): LT HIP When: AGE 19 Spine Fracture: NO History of Wrist Fracture: NO Surgery to Spine/Hip(right/left)/Wrist (right/left): LT HIP When: AGE 19 Family History of Osteoporosis: YES, MATERNAL GRANDMOTHER, SISTER Active: NO Diet low in dairy products/other sources of calcium: NO Postmenopausal woman: YES Take estrogen and/or progesterone medications: NO Lost more than 2 inches in height since high school: NO Frequent falls: NO Poor Health: NO Hyperparathyroidism: NO Adrenal Insufficiency: NO MEDICATIONS: Prednisone or other steroids: NO Thyroid Medications: SYNTHROID Which medication: SINCE AGE 32 Osteoporosis Medications: YES-WEEKLY Which medication: PT NOT SURE OF NAME How Long: PAST 2 MONTHS Additional Medications: LEVOTHYROXINE, CLONIDINE, SIMVASTATIN, INHALER, QUETIAPINE Additional History: EXAM MEASUREMENTS: Bone mineral densitometry was performed using the [employer] System. Bone mineral density as measured about the Lumbar spine is: ----- L1-L4(G/cm2): 0.902 T Score Values are as follows: ----- L1: -2.0 ----- L2: -3.0 ----- L3: -2.6 ----- L4: -2.0 ----- L1-L4: -2.3 BASELINE STUDY Bone mineral density about the R hip (g/cm2): 0.894 T Score values are as follows: -----R Neck: -1.0 -----R Total: -1.6 BASELINE STUDY The graph provided illustrates a 12.8% chance for a major osteoporotic fx and a 1.8% chance for the hips probability for fx in 10 years time. IMPRESSION: Osteopenia (T Score between -2.5 and -1). There is slightly increased risk of fracture and the patient may be considered for treatment. Re-Screen 2-5 years. NOTE: T-SCORE=SD OF THE YOUNG ADULT MEAN.
== END | disposition home or self-care (01) ==
LOC: RADBDWWP 13:13
PROVIDERS: ATTEND Family Medicine
DX: M81.0 Age-related osteoporosis without current pathological fracture (principal)
CPT/HCPCS: 77080

== ENCOUNTER → 2022-11-16 | Outpatient (CLI) | payer MEDICARE ==
--- NOTE | 2022-11-17 09:00 | MM ---
Reason for Exam: Screening (asymptomatic). Last mammogram was performed 5 year(s) and 8 month(s) ago. Patient History: Menarche at age 12. First Full-Term at age 27. Postmenopausal. Estrogen for 2 years, 2 months, from age 42 until age 44. Risk Values: Amarilys 5 year model risk: 1.9%. NCI Lifetime model risk: 6.7%. Prior Study Comparison: 02/13/2014 Bilateral Screening Mammogram, [facility]. 02/17/2017 Bilateral Screening Mammogram, [facility]. 03/10/2017 Right Diagnostic Mammogram, [facility]. Tissue Density: The breast tissue is heterogeneously dense. This may lower the sensitivity of mammography. Findings: Analyzed By CAD. There is no suspicious group of microcalcifications or new suspicious mass in either breast. Overall Assessment: Negative, BI-RAD 1 Management: Screening Mammogram of both breasts in 1 year. A clinical breast exam by your physician is recommended on an annual basis and results should be correlated with mammographic findings. [facility] will attempt to contact patient to return for supplemental views and ultrasound if indicated. Electronically signed and approved by: Quentin Artis DO
== END | disposition home or self-care (01) ==
LOC: RADMAMWWP 16:07
PROVIDERS: ATTEND Family Medicine
DX: Z12.31 Encounter for screening mammogram for malignant neoplasm of breast (principal); Z78.0 Asymptomatic menopausal state
CPT/HCPCS: 77063; 77067

== ENCOUNTER → 2023-02-10 | Outpatient (CLI) | payer MEDICARE ==
--- NOTE | 2023-02-10 11:41 | CTL ---
EXAMINATION TYPE: CT Low Dose Lung DATE OF EXAM ORDERED: 02/10/2023 HISTORY: . Lung cancer screening CT DLP: [address] CTDI: 1.9 mGy Automated exposure control for dose reduction was used. SCREENING VISIT: COMPARISON: 05/26/2020 TECHNIQUE: Low dose computed tomography scan was performed through the chest at 1 mm thick sections a nd reconstructed images in multiple planes at 1 mm and [address] DIAGNOSTIC QUALITY: Satisfactory FINDINGS: There are subsegmental changes most likely compatible with atelectasis. There is biapical pleural thi ckening with subpleural nodularity. Mild emphysematous changes are seen with no evidence of pneumonia , pleural effusion, or pneumothorax. There is atherosclerotic change of aorta and there is coronary artery calcification near the left sanjuana nstem coronary artery. OTHER FINDINGS: Upper abdomen: There is 9 mm hypodense lesion hepatic dome/213 presumed benign. Bony thorax: Somewhat demineralized. Mild height loss with sclerosis superior T12 endplate. Supraclav icular region: None. Other: Some calcification at level of the aortic valve. There is persistent tiny calcified granuloma along the right lower lobe medial lung base. IMPRESSION: 1. Benign sub-5 mm nodule calcified granuloma right lower lobe and subpleural nodularity right lung a pex likely postinflammatory. 2. COPD 3. Stable hepatic dome lesion measuring 1.2 cm and one Hounsfield unit compatible with simple hepatic cyst. CT LUNG RAD AND CT CHEST RECOMMENDATION: Lung-Rad 2 Benign Appearance or Behavior: Continue annual sc reening with LDCT in 12 months.
== END | disposition home or self-care (01) ==
LOC: RADCTMAIN 11:08
PROVIDERS: ATTEND Family Medicine
DX: Z12.2 Encounter for screening for malignant neoplasm of respiratory organs (principal); J84.10 Pulmonary fibrosis, unspecified; J44.9 Chronic obstructive pulmonary disease, unspecified; K76.89 Other specified diseases of liver; R91.8 Other nonspecific abnormal finding of lung field; F17.210 Nicotine dependence, cigarettes, uncomplicated
CPT/HCPCS: 71271

== ENCOUNTER → 2023-11-18 | Outpatient (CLI) | payer MEDICARE ==
--- NOTE | 2023-11-21 09:06 | MM ---
Reason for Exam: Screening (asymptomatic). Last mammogram was performed 1 year(s) and 1 month(s) ago. Patient History: Menarche at age 12. First Full-Term at age 27. Postmenopausal. Estrogen for 2 years, 2 months, from age 42 until age 44. Risk Values: Amarilys 5 year model risk: 1.9%. NCI Lifetime model risk: 6.4%. Prior Study Comparison: 02/17/2017 Bilateral Screening Mammogram, [facility]. 03/10/2017 Right Diagnostic Mammogram, [facility]. 11/16/2022 Bilateral MG 3D screening mammo w/cad, [facility]. Tissue Density: The breast tissue is heterogeneously dense. This may lower the sensitivity of mammography. Findings: Analyzed By CAD. There is no suspicious group of microcalcifications or new suspicious mass in either breast. Benign calcification. Question previous surgical clip on the right. Overall Assessment: Benign, BI-RAD 2 Management: Screening Mammogram of both breasts in 1 year. . Patient should continue monthly self-breast exams. A clinical breast exam by your physician is recommended on an annual basis. This exam should not preclude additional follow-up of suspicious palpable abnormalities. Note on Amarilys scores and lifetime risk: 1. A Amarilys score greater than 3% is considered moderate risk. If this is the case, consider specialist referral to assess eligibility for a risk reducing agent. 2. If overall lifetime risk for the development of breast cancer is 20% or higher, the patient may qualify for future screening with alternating mammogram and breast MRI. Electronically signed and approved by: Francisco Martinez M.D. Radiologis
== END | disposition home or self-care (01) ==
LOC: RADMAMWWP 14:02
PROVIDERS: ATTEND Family Medicine
DX: Z12.31 Encounter for screening mammogram for malignant neoplasm of breast (principal); Z78.0 Asymptomatic menopausal state
CPT/HCPCS: 77063; 77067

== ENCOUNTER → 2024-01-30 | Outpatient (CLI) | payer MEDICARE ==
--- NOTE | 2024-01-30 16:47 | XR ---
EXAMINATION TYPE: XR shoulder complete BILAT DATE OF EXAM: 01/30/2024 3:46 PM CLINICAL INDICATION:Female, 68 years old with history of M542, [id number] PAIN; [facility] COMPARISON: None TECHNIQUE: XR shoulder complete BILAT; examined in AP, internally rotated and scapular Y projections. FINDINGS: No evidence of acute osseous pathology, joint dislocation, or soft tissue swelling. The remaining po rtions of the visualized chest are unremarkable. Mild degeneration changes of the acromion, distal c lavicle with osteophyte formation. There is osteophyte formation of the glenoid and humeral head. The re is joint space narrowing of glenohumeral joint IMPRESSION: 1. No acute osseous pathology. 2. Mild shoulder osteoarthrosis.
--- NOTE | 2024-01-30 16:48 | XR ---
EXAMINATION TYPE: XR cervical spine comp DATE OF EXAM: 01/30/2024 3:46 PM CLINICAL INDICATION:Female, 68 years old with history of M542, [id number] PAIN; [facility] COMPARISON: None TECHNIQUE: The cervical spine was imaged in frontal, lateral, odontoid and bilateral oblique. FINDINGS: The osseous structures show normal alignment without evidence of an acute fracture. There are osteoph ytes noted throughout the cervical spine on the anterior and lateral aspects of the vertebral bodies. The intervertebral disk spaces are narrowed at multiple levels. Pedicles are intact. Soft tissues a re within normal limits. The odontoid appears intact. IMPRESSION: 1. No fracture or dislocation. 2. Mild to moderate degenerative disc disease changes of the cervical spine.
== END | disposition home or self-care (01) ==
LOC: RADXRMAIN 15:29
PROVIDERS: ATTEND Nurse Practitioner Family
DX: M19.011 Primary osteoarthritis, right shoulder (principal); M19.012 Primary osteoarthritis, left shoulder; M50.30 Other cervical disc degeneration, unspecified cervical region
CPT/HCPCS: 72050

== ENCOUNTER → 2024-05-23 | Outpatient (CLI) | payer MEDICARE ==
--- NOTE | 2024-06-12 13:54 | US ---
EXAMINATION TYPE: US pelvis complete transvag DATE OF EXAM: 06/12/2024 COMPARISON: NONE CLINICAL INDICATION: Female, 68 years old with history of postmenopausal bleeding; Spotting x few yea rs when drinking alcohol or eating spicy food. Recent HRT use and discontinued TECHNIQUE: . Transabdominal sonographic images of the pelvis were acquired. Transvaginal sonographi c images were medically necessary to better assess the following anatomy: Uterus and ovaries Date of LMP: 12/10/1997 EXAM MEASUREMENTS: Uterus: 3.2 x 2.1 x 2.1 cm Endometrial Stripe: 0.2 cm Right Ovary: 5.5 x 4.1 x 4.7 cm Left Ovary: Not able to visualize cm 1. Uterus: Anteverted Multiple echogenic foci throughout 2. Endometrium: wnl 3. Right Ovary: Simple cyst noted = 4.6 x 3.8 x 4.1 4. Left Ovary: Not able to visualize 5. Bilateral Adnexa: wnl 6. Posterior cul-de-sac: wnl IMPRESSION: 1. No evidence for acute process. 2. Simple right ovarian cyst measuring up to 4.6 cm. Surveillance with ultrasound imaging is recomme nded. 3. Endometrium within normal limits for thickness.
== END | disposition home or self-care (01) ==
LOC: RADUSWWP 12:15
PROVIDERS: ATTEND Family Medicine
DX: N95.0 Postmenopausal bleeding (principal)
CPT/HCPCS: 76830; 76856

== ENCOUNTER → 2024-06-28 | Outpatient (CLI) | payer MEDICARE ==
--- NOTE | 2024-06-28 11:21 | CTL ---
EXAMINATION TYPE: CT Low Dose Lung DATE OF EXAM ORDERED: 06/28/2024 HISTORY: Lung cancer screening CT DLP: 52.[address] CTDI: 1.3 mGy Automated exposure control for dose reduction was used. [place]02/10/2023 TECHNIQUE: Low dose computed tomography scan was performed through the chest at 1 mm thick sections a nd reconstructed images in multiple planes at 1 mm and [address] DIAGNOSTIC QUALITY: Satisfactory FINDINGS: There are mild stable emphysematous changes. There is a stable small sub-5 mm calcified nodule/granuloma in the right lower lobe medially. No new or suspicious lung mass or nodule seen. There is mild biapical pleural parenchymal changes. There is no airspace consolidation. No pleural effusion or pneumothorax. The great vessels chest are normal and there is no mediastinal, hilar or axillary adenopathy. Limited scanning the upper abdomen reveals a stable cyst in the hepatic dome. No focal osseous lesion s are seen. IMPRESSION: 1. Lung RADS category 2 benign findings. Continue routine screening at yearly intervals. 2. Mild emphysematous changes. 3. No acute cardiopulmonary disease.
== END | disposition home or self-care (01) ==
LOC: RADCTMAIN 10:26
PROVIDERS: ATTEND Family Medicine
DX: Z12.2 Encounter for screening for malignant neoplasm of respiratory organs
CPT/HCPCS: 71271

== ENCOUNTER → 2024-07-26 | Outpatient (CLI) | payer MEDICARE ==
[2024-07-26 19:39] LABS: Cancer Antigen 19-9 12.7 U/mL (0.0-34.9); Carcinoembryonic Antigen 13.2 ng/mL (0.0-4.9)
[2024-07-26 20:56] LABS: Cancer Antigen 125 18.1 U/mL (0.0-30.1)
[2024-07-26 21:22] LABS: Estradiol <20.0 pg/mL; Testosterone <10.00 ng/dL (7.00-45.62)
[2024-07-26 21:23] LABS: HCG,Quantitative Serum <3.0 mIU/mL (0.0-6.0); Luteinizing Hormone 41.1 mIU/mL
[2024-07-31 19:40] LABS: Inhibin B <10 pg/mL
== END | disposition home or self-care (01) ==
LOC: LABWHC1 13:37
PROVIDERS: ATTEND Obstetrics & Gynecology
DX: R19.09 Other intra-abdominal and pelvic swelling, mass and lump (principal)
CPT/HCPCS: 36415; 82378; 82670; 83002; 83520; 84402; 84403; 84702; 86301; 86304; 86336

== ENCOUNTER → 2024-08-03 | Outpatient (CLI) | payer MEDICARE ==
--- NOTE | 2024-08-05 22:08 | BD ---
EXAMINATION TYPE: Axial Bone Density DATE OF EXAM: 08/03/2024 CLINICAL HISTORY: 68 years old Female. ICD-10 CODE: Z78.0 ASYMP STEFANY STATE Height: 63 Weight: 108 FRAX RISK QUESTIONS: Alcohol (3 or more units per day): no Family History (Parent hip fracture): no Glucocorticoids (More than 3mos): no (Ex: prednisone, prednisolone, methylprednisolone, dexamethasone, and hydrocortisone). History of Fracture in Adulthood: no Secondary Osteoporosis: 1. Type 1 Diabetes: no 2. Hyperthyroidism: no 3. Menopause before 45: yes 4. Malnutrition: no 5. Chronic liver disease: no Rheumatoid Arthritis: no Current Tobacco Use: yes RISK FACTORS HISTORY OF: Surgery to Spine/Hip(right/left)/Wrist (right/left): left hip replaced/fractured MEDICATIONS: Thyroid Medications: synthroid How Long: since age 32 EXAM MEASUREMENTS: Bone mineral densitometry was performed using the [employer] System. Bone mineral density as measured about the Lumbar spine is: ----- L1-L4(G/cm2): 0.932 T Score Values are as follows: ----- L1: -2.8 ----- L2: -2.6 ----- L3: -2.2 ----- L4: -0.9 ----- L1-L4: -2.1 Z Score Values are as follows: ----- L1: -0.6 ----- L2: -0.4 ----- L3: -0.1 ----- L4: 1.2 ----- L1-L4: 0.1 Bone mineral density has: increased 3.3 % since study of: 06.03.2022 Bone mineral density about the R hip (g/cm2): 0.744 T Score values are as follows: -----R Neck: -1.7 -----R Total: -2.1 Z Score values are as follows: -----R Neck: 0.2 -----R Total: -0.3 Bone mineral density has: decreased -7.0 % since study of: 06.03.2022 FRAX%s: The graph provided illustrates a 14.7% chance for a major osteoporotic fx and a 3.9% chance f or the hips probability for fx in 10 years time. IMPRESSION: Osteoporosis (T Score less than -2.5). There is increased fracture risk and therapy is usually indicated based on age. Re-Screen 1-2 years. NOTE: T-SCORE=SD OF THE YOUNG ADULT MEAN. [facility], , 08/05/2024 10:06 PM
== END | disposition home or self-care (01) ==
LOC: RADBDWWP 15:51
PROVIDERS: ATTEND Obstetrics & Gynecology
CPT/HCPCS: 77080

== ENCOUNTER → 2024-08-14 | Outpatient (CLI) | payer MEDICARE ==
[2024-08-14 19:56] LABS: ALT 20 U/L (8-44); AST 26 U/L (13-35); Albumin 4.4 g/dL (3.8-4.9); Alkaline Phosphatase 46 U/L (41-126); Calcium 9.9 mg/dL (8.7-10.3); T4, Free (Free Thyroxine) 1.74 ng/dL (0.80-1.80)
[2024-08-14 22:50] LABS: Phosphorus 4.5 mg/dL (2.4-5.1)
== END | disposition home or self-care (01) ==
LOC: LABWHC1 12:29
PROVIDERS: ATTEND Obstetrics & Gynecology
DX: M81.8 Other osteoporosis without current pathological fracture (principal)
CPT/HCPCS: 36415; 82040; 82306; 82310; 82565; 82570; 83970; 84075; 84100; 84439; 84443; 84450; 84460

== ENCOUNTER → 2025-04-29 | Outpatient (CLI) | payer MEDICARE ==
[2025-04-29 15:54] LABS: T4, Free (Free Thyroxine) 1.27 ng/dL (0.80-1.80)
== END | disposition home or self-care (01) ==
LOC: LABWHC1 10:16
PROVIDERS: ATTEND Internal Medicine
DX: E03.9 Hypothyroidism, unspecified (principal)
CPT/HCPCS: 36415; 84439; 84443

== ENCOUNTER → 2025-05-13 | Outpatient (CLI) | payer MEDICARE ==
--- NOTE | 2025-05-15 13:22 | US ---
EXAMINATION TYPE: US pelvis complete transvag DATE OF EXAM: 05/13/2025 COMPARISON: CLINICAL INDICATION: Female, 69 years old with history of N83.201 UNSPECIFIED OVARIAN CYST, RIGHT VEE E; Follow up ovarian cyst TECHNIQUE: Transvaginal (TV) and Transabdominal (TA) . Transabdominal grayscale sonographic images of the pelvis were acquired. Transvaginal sonographic im ages were medically necessary to better assess the following anatomy: Ovaries Doppler imaging: Not performed. FINDINGS: Date of LMP: Unknown EXAM MEASUREMENTS: Uterus: 4.0 x 2.4 x 1.6 cm Endometrial Stripe: 0.2 cm Right Ovary: 4.7 x 4.6 x 3.9 cm 1. Uterus: Anteverted wnl 2. Endometrium: wnl 3. Right Ovary: anechoic lesion= 4.3 x 4.0 x 3.7 cm 4. Left Ovary: Obscured by overlying bowel gas 5. Bilateral Adnexa: no free fluid 6. Posterior cul-de-sac: no free fluid IMPRESSION: 1. There is a simple appearing 4.3 cm right ovarian cyst. Recommend follow-up in 6-8 weeks for resolu tion. O-RADS 2021 [email or web address] [email or web address], , 05/15/2025 1:19 PM
== END | disposition home or self-care (01) ==
LOC: RADUSWWP 15:28
PROVIDERS: ATTEND Obstetrics & Gynecology
DX: N83.201 Unspecified ovarian cyst, right side (principal)
CPT/HCPCS: 76830; 76856; 82378; 86304